=== PATIENT | male | born 1990 ===

== ENCOUNTER → 2020-11-15 10:54 | Outpatient (BNVA) | payer SELFPAY | PROVIDERS: Visit Provider Physician Assistant Medical | DX: Z02.79 Encounter for issue of other medical certificate (principal) ==

== ENCOUNTER 2021-03-06 08:06 | Emergency (ER) | payer MEDICAID, SELFPAY ==
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
[2021-03-06 08:09] VITALS: BP 152/104; PULSE 120; RESP 20; TEMP 36.9; O2SAT 96; BMI 30.1
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
--- NOTE | 2021-03-06 09:11 | ECG_ITS ---
Test Reason : SOB Blood Pressure : / mmHG Vent. Rate : 097 BPM Atrial Rate : 097 BPM P-R Int : 124 ms QRS Dur : 080 ms QT Int : 338 ms P-R-T Axes : 000 166 175 degrees QTc Int : 429 ms Possible limb lead reversal Normal sinus rhythm Right axis deviation T wave abnormality, consider inferior ischemia Abnormal ECG No previous ECGs available advise repeat study Referred By: Raffi Gar Electronically Signed By:JOSE ALBERTO SHARMA MD
--- NOTE | 2021-03-06 09:12 | PC.NURSE ---
@08:40 RABIA HART REQUEST RECORDS FROM [facility] [phone] CALL PLACED, THEY REQUEST FAX OF AUTH OF MED RELEASE TO [phone] WITH STAT ON FAX TANNER TELLS ME THIS IS NO LONGER NEEDED AND TO PLACE CALL TO [facility] FOR TRAUMA TRANSFER
--- NOTE | 2021-03-06 09:16 | PC.NURSE ---
@ 09:16 CALL PLACED TO [facility] PT TX LINE [phone] FOR TRAUMA TRANSFER @ RABIA HART REQUEST Shakira ANSWERS TAKES PT INFO THEN ASKS TO SPEAK WITH TANNER HART TAKES OVER CALL RIGHT AWAY
--- NOTE | 2021-03-06 09:30 | PC.NURSE ---
@09:28 RETURN CALL FROM JANAY FROM [facility] PT TX LINE ASKING TO SPEAK WITH TANNER HART TAKES OVER CALL RIGHT AWAY
--- NOTE | 2021-03-06 09:42 | PHA.MEDREC ---
Pharmacy Consult ? Medication Reconciliation Pharmacy has completed the medication reconciliation. Patient reports taking no prescription or OTC medications. Sharon Salinas, SrikanthD
[2021-03-06] MEDS: Morphine Sulfate 4 MG/ML CARTRIDGE IVPUSH (09:46)
[2021-03-06] MEDS: ondansetron HCL 4 MG/2 ML VIAL IVPUSH (09:46)
[2021-03-06] MEDS: Piperacillin Sodium/Tazobactam 3.375 GM in 0.9 % Sodium Chloride 50 ML IV (10:06)
[2021-03-06 10:13] LABS: MANUAL DIFF FLAG NO
[2021-03-06 10:16] LABS: Basophils Percent Auto 0.1 % (0-2); Eosinophils Percent Auto 0.1 % (0-4); Hematocrit 42.8 % (42.0-52.0); Hemoglobin 15.2 g/dl (14.0-18.0); Imm Gran Abs Auto 0.05 X10*3/uL (0.00-0.03); Imm Gran Pct Auto 0.4 % (0.0-0.4); Lymphocytes Percent Auto 8.9 % (20-40); Mean Corpuscular HGB Conc 35.5 g/dl (31.0-36.0); Mean Corpuscular Hemoglobin 31.7 pg (27.0-33.0); Mean Corpuscular Volume 89.2 fL (80.0-98.0); Monocytes Absolute Auto 0.9 X10*3/uL (0.1-1.2); Monocytes Percent Auto 7.5 % (2-11); Neutrophils Absolute Auto 9.7 x10*3/uL (2.0-8.3); Platelet Count 280 X10*3/uL (160-400); Red Cell Distribution Width 11.7 % (11.0-16.0); White Blood Count 11.7 X10*3/uL (4.8-10.8)
[2021-03-06] MEDS: Lactated Ringers 1,000 ML 999 ML IV (10:19)
[2021-03-06 10:21] LABS: INTERNATIONAL NORM RATIO 1.2 (0.9-1.1); Prothrombin Time 13.4 SEC (9.9-13.0)
[2021-03-06 10:27] LABS: Lactic Acid 0.8 mmol/L (0.5-2.0)
[2021-03-06 10:30] LABS: COVID-19 Test Negative (Negative); IDNOW Serial# 9DD0AD1C
[2021-03-06 10:34] LABS: Alanine Aminotransferase 28 U/L (0-40); Albumin Level 3.8 g/dL (3.5-5.0); Alkaline Phosphatase 51 U/L (39-117); Anion Gap 12 (12-20); Aspartate Amino Transferase 18 U/L (5-37); Bilirubin Total 0.8 mg/dL (0.0-1.0); Blood Urea Nitrogen 10 mg/dL (9-16); Calcium 8.7 mg/dL (8.4-10.2); Carbon Dioxide 26 mmol/L (22-29); Chloride 100 mmol/L (96-108); Creatinine Clr Calc Pharmacy 158.6; Estimated Glomerular Filt Rate > 60; Glucose Random 116 mg/dL (60-115); Lipase 13 U/L (8-78); Magnesium 1.9 mg/dL (1.6-2.6); Potassium 3.7 mmol/L (3.3-5.1); Sodium 134 mmol/L (135-145); Total Protein 6.6 g/dL (6.5-8.0)
[2021-03-06 10:46] VITALS: BP 147/85; PULSE 86; RESP 18; TEMP 38; O2SAT 96
[2021-03-06 11:50] LABS: Partial Thromboplastin Time 28.7 SEC (24.1-38.0)
== END 2021-03-06 11:35 | disposition short-term general hospital (02) ==
PROVIDERS: Physician Assistant; Emergency Provider Emergency Medicine Emergency Medical Services
DX: S80.812A Abrasion, left lower leg, initial encounter (principal); S80.811A Abrasion, right lower leg, initial encounter; S70.219A Abrasion, unspecified hip, initial encounter; S40.812A Abrasion of left upper arm, initial encounter; S40.811A Abrasion of right upper arm, initial encounter; S60.512A Abrasion of left hand, initial encounter; S60.511A Abrasion of right hand, initial encounter; L03.90 Cellulitis, unspecified; R53.1 Weakness; M54.2 Cervicalgia; V28.4XXA Motorcycle driver injured in noncollision transport accident in traffic accident, initial encounter; Y93.89 Activity, other specified; Y92.410 Unspecified street and highway as the place of occurrence of the external cause; Y99.9 Unspecified external cause status; Z20.822 Contact with and (suspected) exposure to COVID-19
CPT/HCPCS: 36415; 71111; 80053; 82550; 83605; 83690; 83735; 85025; 85610; 85730; 87040; 87635; 93005; 96365; 96375; 99284; 99291; J2270; J2405; J2543

== ENCOUNTER 2021-05-02 08:31 | Emergency (ER) | payer MEDICAID, SELFPAY ==
[2021-05-02 09:27] VITALS: BP 144/91; PULSE 100; RESP 16; TEMP 36.1; O2SAT 99; BMI 30.1
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
--- NOTE | 2021-05-02 11:27 | PC.NURSE ---
PT EVALUATED BY RABIA RODRIGUEZ PLAN IS FOR DC HOME. PT AGREEABLE TO PLAN. PT AWAKE, ALERT AND ORIENTED X 3. SKIN WARM AND DRY. RESP UNLABORED. DENIES N/V. AMBULATORY, GAIT STEADY
== END 2021-05-02 11:30 | disposition home or self-care (01) ==
PROVIDERS: Emergency Provider Emergency Medicine
DX: M54.16 Radiculopathy, lumbar region (principal); M54.50 Low back pain, unspecified
CPT/HCPCS: 99281; 99283

== ENCOUNTER 2021-08-18 05:47 | Emergency (ER) | payer MEDICAID, SELFPAY ==
[2021-08-18 06:29] VITALS: BP 140/89; PULSE 114; RESP 22; TEMP 38.2; O2SAT 97; BMI 34.8
[2021-08-18] MEDS: Ondansetron ODT 4 MG TAB.RAPDIS TRANSLINGU (06:35)
[2021-08-18 06:57] LABS: COVID-19 Test Negative (Negative); IDNOW Serial# 55D5AD1C
[2021-08-18 06:58] LABS: IDNOW Serial# 16C4AD1C; Influenza A Positive (Negative); Influenza B2 Negative (Negative)
--- NOTE | 2021-08-18 07:36 | ED_ITS ---
HPI - Nausea/Vomiting/Diarrhea General Chief complaint: Nausea/Vomiting/Diarrhea Stated complaint: fever; vomiting Time Seen by Provider: 08/18/21 07:36 Source: patient and family Mode of arrival: ambulatory Limitations: no limitations History of Present Illness MD elicited complaint: nausea, vomiting, diarrhea and other (fevers body aches) Pertinent past history: other (vaccinated for COVID) Onset (ago): day(s) (3) Description of vomiting: food contents and watery Associated nausea: Yes Associated abdominal pain: No Location of pain: diffuse Radiation: diffuse Pain consistency: constant Severity: moderate Quality: cramping and aching Exacerbating factors: movement Relieving factors: none Associated symptoms: myalgias, cough, fever/chills, headaches, loss of appetite, malaise and nausea/vomiting Treatment prior to arrival: other (no medications today ) Related Data Previous Rx's Medication Instructions Recorded acetaminophen 500 mg tablet 1,000 mg PO QID PRN #30 tab 05/02/21 cyclobenzaprine 5 mg tablet 5 mg PO TID PRN #14 tab 05/02/21 ibuprofen 600 mg tablet 600 mg PO Q6H PRN #30 tab 05/02/21 lidocaine 5 % topical patch 1 patch TOPICAL DAILY #15 ea 05/02/21 prednisone 20 mg tablet 60 mg PO DAILY 5 Days #15 tab 05/02/21 ondansetron 4 mg disintegrating 4 mg PO Q8H PRN #20 tab 08/18/21 tablet Allergies Allergy/AdvReac Type Severity Reaction Status Date / Time No Known Allergies Allergy Unverified 01/05/20 17:08 Review of Systems Review of Systems: Constitutional : No Weight loss, pos Fever, pos Chills ENT/Mouth : No sore throat, No Rhinorrhea Eyes: No Swelling, No Redness Cardiovascular : No Chest Pain, No SOB, NoEdema Respiratory : No Cough, No Sputum, No Wheezing Gastrointestinal : Positive Nausea, Positive Vomiting, positive Diarrhea, no abdominal Pain, No Hematochezia, No Melena Genitourinary : No Dysuria, No Urinary Frequency, No Hematuria, No Urgency Musculoskeletal : No joint pain, pos Myalgias, No Joint Swelling Skin : No Skin Lesions, No rash Neuro : pos Weakness, No Numbness, No Dizziness, pos Headache Psych : No Anxiety/Panic, No Depression Heme/Lymph: No Bruising, No Lymphadenopathy Endocrine : No Polyuria, No Polydipsia All other systems reviewed and are negative. Gastrointestinal: Gastrointestinal: Reports nausea PMFSH Past Medical History Attestation statement: The following information was validated with the patient. Medical History Asthma Social History Social History (Updated 08/18/21 @ 07:41 by Anjali Sr DO) Patient Tobacco Use Status: Never used Tobacco Advance Directives: No Advance Directives Information Provided: Yes Physical Exam Vital Signs: Vital Signs: Last Vital Signs Temp 100.8 F H 08/18/21 06:29 Pulse 114 H 08/18/21 06:29 Resp 22 H 08/18/21 06:29 BP 140/89 H 08/18/21 06:29 Pulse Ox 97 08/18/21 06:29 BMI result Body Mass Index 34.8 Appearance: Alert. Oriented X3. No acute distress. Eyes: Pupils equal, round and reactive to light. ENT: Pharynx normal. Neck: Normal inspection. Neck supple. CVS: tachycardic heart rate and rhythm. Pulses normal. Respiratory: No respiratory distress. Breath sounds normal. Abdomen: Soft and nontender. Skin: Skin warm and dry. Normal skin color. Normal skin turgor. Extremities: No lower extremity edema. No calf ttp Neuro: Oriented X 3. No motor deficit. No sensory deficit. Course Course Course Narrative: feels much better, able to tolerate PO stable for DC at this time MDM - Nausea/Vomiting/Diarrhea MDM Narrative Medical decision making narrative: 31 yo male with hx of asthma here with cough, fevers, body aches, headaches + for Flu A he is on day 3 of symptoms out of window for tamiflu - clear lungs. At this time will hydrate and provide supportive medications. Dispo per clinical improvement. Lab Data Result diagrams: 08/18/21 07:56 08/18/21 09:35 Labs: Lab Results 08/18/21 08/18/21 08/18/21 Range/Units 06:37 06:37 07:56 WBC 4.8 (4.8-10.8) X10*3/uL RBC 4.64 (4.60-5.80) X10*6/uL Hgb 14.2 (14.0-18.0) g/dl Hct 41.4 L (42.0-52.0) % MCV 89.2 (80.0-98.0) fL MCH 30.6 (27.0-33.0) pg MCHC 34.3 (31.0-36.0) g/dl RDW 12.4 (11.0-16.0) % Plt Count 197 D (160-400) X10*3/uL MPV 10.2 (9.4-12.4) fL Immature Gran % (Auto) 0.2 (0.0-0.4) % Neut % (Auto) 80.6 H (45-73) % Lymph % (Auto) 9.6 L (20-40) % [place] % (Auto) 9.0 (2-11) % Eos % (Auto) 0.6 (0-4) % Baso % (Auto) 0.0 (0-2) % Lymph # (Auto) 0.5 L (1.2-4.9) X10*3/uL [place] # (Auto) 0.4 (0.1-1.2) X10*3/uL Eos # (Auto) 0.0 (0.0-0.4) X10*3/uL Baso # (Auto) 0.0 (0.0-0.2) X10*3/uL Abs Immat Gran (auto) 0.01 (0.00-0.03) X10*3/uL Absolute Neuts (auto) 3.9 (2.0-8.3) x10*3/uL Absolute Nucleated RBC 0.000 (0.0-0.012) X10*3/uL Nucleated RBC % (auto) 0.0 (0.0-0.2) /100WBC Sodium (135-145) mmol/L Potassium (3.3-5.1) mmol/L Chloride (96-108) mmol/L Carbon Dioxide (22-29) mmol/L Anion Gap (12-20) BUN (9-16) mg/dL Creatinine (0.5-1.4) mg/dL Estim Creat Clear Calc Estimated GFR Random Glucose (60-115) mg/dL Calcium (8.4-10.2) mg/dL Total Bilirubin (0.0-1.0) mg/dL Direct Bilirubin (0.0-0.5) mg/dL AST (5-37) U/L ALT (0-40) U/L Alkaline Phosphatase (39-117) U/L Total Protein (6.5-8.0) g/dL Albumin (3.5-5.0) g/dL COVID-19 (MARIE) Negative (Negative) COVID-19 Clin Com See Note Influenza Type A (YARED) Positive A (Negative) Influenza Type B (YARED) Negative (Negative) Influenza A & B Note See Note 08/18/21 Range/Units 09:35 WBC (4.8-10.8) X10*3/uL RBC (4.60-5.80) X10*6/uL Hgb (14.0-18.0) g/dl Hct (42.0-52.0) % MCV (80.0-98.0) fL MCH (27.0-33.0) pg MCHC (31.0-36.0) g/dl RDW (11.0-16.0) % Plt Count (160-400) X10*3/uL MPV (9.4-12.4) fL Immature Gran % (Auto) (0.0-0.4) % Neut % (Auto) (45-73) % Lymph % (Auto) (20-40) % [place] % (Auto) (2-11) % Eos % (Auto) (0-4) % Baso % (Auto) (0-2) % Lymph # (Auto) (1.2-4.9) X10*3/uL [place] # (Auto) (0.1-1.2) X10*3/uL Eos # (Auto) (0.0-0.4) X10*3/uL Baso # (Auto) (0.0-0.2) X10*3/uL Abs Immat Gran (auto) (0.00-0.03) X10*3/uL Absolute Neuts (auto) (2.0-8.3) x10*3/uL Absolute Nucleated RBC (0.0-0.012) X10*3/uL Nucleated RBC % (auto) (0.0-0.2) /100WBC Sodium 137 (135-145) mmol/L Potassium 3.2 L (3.3-5.1) mmol/L Chloride 106 (96-108) mmol/L Carbon Dioxide 23 (22-29) mmol/L Anion Gap 11 L (12-20) BUN 11 (9-16) mg/dL Creatinine 0.97 (0.5-1.4) mg/dL Estim Creat Clear Calc 135.4 Estimated GFR > 60 Random Glucose 111 (60-115) mg/dL Calcium 8.1 L D (8.4-10.2) mg/dL Total Bilirubin 0.3 (0.0-1.0) mg/dL Direct Bilirubin 0.2 (0.0-0.5) mg/dL AST 25 (5-37) U/L ALT 38 (0-40) U/L Alkaline Phosphatase 38 L D (39-117) U/L Total Protein 6.1 L (6.5-8.0) g/dL Albumin 3.5 (3.5-5.0) g/dL COVID-19 (MARIE) (Negative) COVID-19 Clin Com Influenza Type A (YARED) (Negative) Influenza Type B (YARED) (Negative) Influenza A & B Note Discharge Plan Discharge Clinical Impression: Influenza A, Acute hypokalemia Patient Disposition: Home, Self-Care Instructions: Influenza (ED), Hypokalemia (ED) Additional Instructions: return to ED for any worsening symptoms or concerns take tylenol and motrin regularly for body aches and fevers gatorade, pedialyte take it easy and rest Prescriptions: New ondansetron 4 mg tablet,disintegrating 4 mg PO Q8H PRN (Reason: nausea and vomiting) Qty: 20 0RF No Action lidocaine 5 % adhesive patch,medicated 1 patch topical DAILY Qty: 15 0RF Rx Instructions: leave on most painful area for up to 12 hrs cyclobenzaprine 5 mg tablet 5 mg PO TID PRN (Reason: muscle spasm) Qty: 14 0RF ibuprofen 600 mg tablet 600 mg PO Q6H PRN (Reason: pain) Qty: 30 0RF prednisone 20 mg tablet 60 mg PO DAILY 5 Days Qty: 15 0RF acetaminophen 500 mg tablet 1,000 mg PO QID PRN (Reason: pain) Qty: 30 0RF
[2021-08-18 08:00] LABS: MANUAL DIFF FLAG NO
[2021-08-18] MEDS: 0.9 % Sodium Chloride 1,000 ML 999 ML IV (08:06)
[2021-08-18] MEDS: ondansetron HCL 4 MG/2 ML VIAL IVPUSH (08:06)
[2021-08-18] MEDS: Ketorolac Tromethamine 30 MG/ML VIAL IVPUSH (08:12)
[2021-08-18] MEDS: Acetaminophen 325 MG TABLET 650 MG PO (08:12)
[2021-08-18 08:14] LABS: Eosinophils Percent Auto 0.6 % (0-4); Hematocrit 41.4 % (42.0-52.0); Hemoglobin 14.2 g/dl (14.0-18.0); Imm Gran Abs Auto 0.01 X10*3/uL (0.00-0.03); Imm Gran Pct Auto 0.2 % (0.0-0.4); Lymphocytes Absolute Auto 0.5 X10*3/uL (1.2-4.9); Lymphocytes Percent Auto 9.6 % (20-40); Mean Corpuscular HGB Conc 34.3 g/dl (31.0-36.0); Mean Corpuscular Hemoglobin 30.6 pg (27.0-33.0); Mean Corpuscular Volume 89.2 fL (80.0-98.0); Mean Platelet Volume 10.2 fL (9.4-12.4); Monocytes Absolute Auto 0.4 X10*3/uL (0.1-1.2); Neutrophils Absolute Auto 3.9 x10*3/uL (2.0-8.3); Neutrophils Percent Auto 80.6 % (45-73); Platelet Count 197 X10*3/uL (160-400); Red Blood Count 4.64 X10*6/uL (4.60-5.80); Red Cell Distribution Width 12.4 % (11.0-16.0); White Blood Count 4.8 X10*3/uL (4.8-10.8)
[2021-08-18 09:59] LABS: Alanine Aminotransferase 38 U/L (0-40); Albumin Level 3.5 g/dL (3.5-5.0); Alkaline Phosphatase 38 U/L (39-117); Anion Gap 11 (12-20); Aspartate Amino Transferase 25 U/L (5-37); Bilirubin Direct 0.2 mg/dL (0.0-0.5); Bilirubin Total 0.3 mg/dL (0.0-1.0); Blood Urea Nitrogen 11 mg/dL (9-16); Calcium 8.1 mg/dL (8.4-10.2); Carbon Dioxide 23 mmol/L (22-29); Chloride 106 mmol/L (96-108); Creatinine Clr Calc Pharmacy 135.4; Estimated Glomerular Filt Rate > 60; Glucose Random 111 mg/dL (60-115); Potassium 3.2 mmol/L (3.3-5.1); Sodium 137 mmol/L (135-145); Total Protein 6.1 g/dL (6.5-8.0)
[2021-08-18] MEDS: Potassium Chloride Packet 20 MEQ PACKET 40 MEQ PO (11:30)
== END 2021-08-18 11:36 | disposition home or self-care (01) ==
PROVIDERS: Emergency Provider Emergency Medicine
DX: J10.1 Influenza due to other identified influenza virus with other respiratory manifestations (principal); E87.6 Hypokalemia; J45.909 Unspecified asthma, uncomplicated; Z20.822 Contact with and (suspected) exposure to COVID-19
CPT/HCPCS: 36415; 80048; 80076; 85025; 87502; 87635; 96361; 96374; 96375; 99283; 99284; J1885; J2405

== ENCOUNTER 2023-01-29 17:10 | Emergency (ER) | payer MEDICAID, SELFPAY ==
[2023-01-29 17:25] VITALS: BP 140/77; PULSE 90; RESP 17; TEMP 37; O2SAT 96; BMI 33.8
== END 2023-01-29 21:10 | disposition left against medical advice (07) ==
PROVIDERS: Emergency Provider Emergency Medicine
DX: S01.511A Laceration without foreign body of lip, initial encounter (principal); W22.8XXA Striking against or struck by other objects, initial encounter; Y93.9 Activity, unspecified; Y92.9 Unspecified place or not applicable; Y99.0 Civilian activity done for income or pay
CPT/HCPCS: 99281

== ENCOUNTER 2023-11-28 20:19 | Emergency (ER) | payer MEDICAID, SELFPAY ==
[2023-11-28] VITALS (8 sets, daily range): BP systolic 111–142; BP diastolic 80–92; PULSE 63–107; RESP 12–20; TEMP 36.6–36.7; O2SAT 96–99; BMI 30.2
--- NOTE | ~2023-11-28 | XR_ITS ---
EXAMINATION: XR HAND/WRIST, LEFT CLINICAL INFORMATION: Status post fall COMPARISON: None TECHNIQUE: PA, lateral, and oblique views of the left hand and wrist. FINDINGS: Possible minimally displaced fracture of the scaphoid base seen on oblique view. Remaining osseous structures appear intact. XR/XR hand wrist LT IMPRESSION: Possible minimally displaced fracture of the scaphoid base seen on oblique view. Repeat films with dedicated navicular view is recommended.
--- NOTE | ~2023-11-28 | CT_ITS ---
EXAMINATION: CT SHOULDER LET WITHOUT IV CONTRAST CLINICAL INFORMATION: Fall. Pain. Concern for dislocation. COMPARISON: None available. TECHNIQUE: Contiguous axial noncontrast CT scan images of the left shoulder obtained. Sagittal and coronal reformatted images also obtained. This CT examination was performed using dose optimization techniques as appropriate, variously including the following: *Automated exposure control *Adjustment of mA and/or kV according to patient size (this includes techniques or standardized protocols for targeted exams where dose is matched to indication/reason for exam; i.e. extremities or head) *Use of iterative reconstruction technique DLP: 665 mGy-cm FINDINGS: The bone mineralization is normal. The glenohumeral joint is maintained. No fracture is seen. The soft tissues are unremarkable. CT/CT shoulder LT wo IV con IMPRESSION: Unremarkable examination.
--- NOTE | ~2023-11-28 | XR_ITS ---
EXAMINATION: XR CHEST CLINICAL INFORMATION: Chest pain, fell off horse COMPARISON: 03/06/2021 TECHNIQUE: Frontal view of the chest was obtained. FINDINGS: No significant abnormality is noted involving the heart, lungs, mediastinum, bony thorax or soft tissues. XR/XR chest 1V IMPRESSION: Unremarkable examination.
--- NOTE | ~2023-11-28 | XR_ITS ---
EXAMINATION: XR SHOULDER, LEFT CLINICAL INFORMATION: Status post fall. COMPARISON: None available. TECHNIQUE: Two views of the left shoulder. FINDINGS: There is inferior displacement of the humeral head relative to the glenoid fossa. Soft tissue swelling about the shoulder. XR/XR shoulder LT min 2V IMPRESSION: Inferior displacement of the humeral head relative to the glenoid fossa.
--- NOTE | ~2023-11-28 | CT_ITS ---
EXAMINATION: CT HEAD WITHOUT CONTRAST CT CERVICAL SPINE WITHOUT CONTRAST CLINICAL INFORMATION: Trauma. Pain. COMPARISON: None available. TECHNIQUE: Contiguous axial imaging was performed through the head and cervical spine without intravenous administration of contrast. Sagittal and coronal reformatted images also obtained. This CT examination was performed using dose optimization techniques as appropriate, variously including the following: *Automated exposure control *Adjustment of mA and/or kV according to patient size (this includes techniques or standardized protocols for targeted exams where dose is matched to indication/reason for exam; i.e. extremities or head) *Use of iterative reconstruction technique DLP: 1397 mGy-cm FINDINGS: The lateral, third and fourth ventricles are normally outlined. The cortical sulci and basal cisterns are normally outlined as well. There is no acute territorial defect, hemorrhage or midline shift. The extra-axial spaces are unremarkable. Calvarium/scalp: Intact. Maxillofacial sinuses and mastoids: Clear as visualized. Cervical spine: The alignment is normal. The disc spaces are maintained. Spinal canal and neuroforamen are patent. The bone mineralization dilatation is normal. A heel/old C7 hillary shovelers type fracture of the spinous process is noted. No acute fracture seen. The soft tissues are unremarkable. The visualized upper lung reynoso are clear. CT/CT head/brain wo IV con IMPRESSION: 1. No acute intracranial pathology. 2. No evidence of acute cervical spine injury.
--- NOTE | ~2023-11-28 | XR_ITS ---
EXAMINATION: XR ELBOW, LEFT CLINICAL INFORMATION: Fell off horse COMPARISON: None available. TECHNIQUE: AP, lateral, and oblique views of the left elbow. FINDINGS: Minimally displaced fracture of the coronoid process seen on lateral view. Soft tissue swelling along the posterior aspect of the elbow. No large effusion. XR/XR elbow LT 2V IMPRESSION: Minimally displaced fracture of the coronoid process seen on lateral view. Soft tissue swelling along the posterior aspect of the elbow.
--- NOTE | ~2023-11-28 | XR_ITS ---
EXAMINATION: XR RIBS, LEFT CLINICAL INFORMATION: Left rib pain COMPARISON: None available. TECHNIQUE: 3 views of the left ribs were obtained. FINDINGS: Lungs are clear. No consolidation, pneumothorax, or pleural effusion. The cardiomediastinal silhouette and pulmonary vasculature are normal. Osseous structures are unremarkable. Ribs are intact. No fractures are identified. XR/XR ribs LT 2V IMPRESSION: Unremarkable examination.
--- NOTE | ~2023-11-28 | CT_ITS ---
EXAMINATION: CT HEAD WITHOUT CONTRAST CT CERVICAL SPINE WITHOUT CONTRAST CLINICAL INFORMATION: Trauma. Pain. COMPARISON: None available. TECHNIQUE: Contiguous axial imaging was performed through the head and cervical spine without intravenous administration of contrast. Sagittal and coronal reformatted images also obtained. This CT examination was performed using dose optimization techniques as appropriate, variously including the following: *Automated exposure control *Adjustment of mA and/or kV according to patient size (this includes techniques or standardized protocols for targeted exams where dose is matched to indication/reason for exam; i.e. extremities or head) *Use of iterative reconstruction technique DLP: 1397 mGy-cm FINDINGS: The lateral, third and fourth ventricles are normally outlined. The cortical sulci and basal cisterns are normally outlined as well. There is no acute territorial defect, hemorrhage or midline shift. The extra-axial spaces are unremarkable. Calvarium/scalp: Intact. Maxillofacial sinuses and mastoids: Clear as visualized. Cervical spine: The alignment is normal. The disc spaces are maintained. Spinal canal and neuroforamen are patent. The bone mineralization dilatation is normal. A heel/old C7 hillary shovelers type fracture of the spinous process is noted. No acute fracture seen. The soft tissues are unremarkable. The visualized upper lung reynoso are clear. CT/CT cervical spine wo IV con IMPRESSION: 1. No acute intracranial pathology. 2. No evidence of acute cervical spine injury.
--- NOTE | ~2023-11-28 | XR_ITS ---
EXAMINATION: XR wrist LT w scaphoid CLINICAL INFORMATION: Reason for Exam fall off horse COMPARISON: None. TECHNIQUE: Navicular view of the left wrist FINDINGS: * Obliquely oriented fracture of the scaphoid bone at the waist. XR/XR wrist LT w scaphoid IMPRESSION: Obliquely oriented fracture of the scaphoid bone at the waist.
--- NOTE | ~2023-11-28 | XR_ITS ---
EXAMINATION: XR SHOULDER, LEFT CLINICAL INFORMATION: Post reduction COMPARISON: 11/28/2023 TECHNIQUE: 2 views of the left shoulder. FINDINGS.: Persistent inferior displacement of the left humeral head relative to the glenoid fossa. Persistent widening of the acromioclavicular joint. XR/XR shoulder LT min 2V IMPRESSION: Persistent inferior displacement of the left humeral head relative to the glenoid fossa. Persistent widening of the acromioclavicular joint.
--- NOTE | 2023-11-28 20:28 | ED_ITS ---
HPI - Extremity Injury (Upper) General Chief Complaint: Trauma Stated Complaint: fell off a horse, left shoulder Time Seen by Provider: 11/28/23 20:50 Source: patient, RN notes reviewed and old records reviewed Mode of arrival: ambulatory History of Present Illness ED Provider: Lynsey Lucio PA-C HPI narrative: 33-year-old male no significant past medical history presenting to the ED complaining of left shoulder, elbow, wrist, and left rib pain s/p falling off horse 45 minutes [employer]. Denies head strike, admits was wearing helmet and chest protection. Denies taking anticoagulation. States stood up initially after incident, however too quickly and became lightheaded/dizzy and sat back down. Denies LOC. denies abdominal pain, nausea/vomiting, headache, neck/back pain Related Data Previous Rx's ?Medication ?Instructions ?Recorded acetaminophen 500 mg tablet 1,000 mg (2 x 500 mg) PO QID PRN 05/02/21 pain #30 tabs cyclobenzaprine 5 mg tablet 5 mg PO TID PRN muscle spasm #14 05/02/21 tabs ibuprofen 600 mg tablet 600 mg PO Q6H PRN pain #30 tabs 05/02/21 lidocaine 5 % topical patch 1 patch topical DAILY Back pain 05/02/21 #15 ea prednisone 20 mg tablet 60 mg (3 x 20 mg) PO DAILY 5 days 05/02/21 #15 tabs ondansetron 4 mg disintegrating 4 mg PO Q8H PRN nausea and 08/18/21 tablet vomiting #20 tabs acetaminophen 500 mg tablet 500 mg PO Q6H PRN fever or pain 11/29/23 (Tylenol Extra Strength) #14 tabs bacitracin 500 unit/gram topical 1 appl topical BID #30 grams 11/29/23 ointment ibuprofen 800 mg tablet 800 mg PO Q8H PRN pain #14 tabs 11/29/23 morphine 15 mg immediate release 15 mg PO Q6H PRN pain (scale score 11/29/23 tablet 7-10) 3 days #9 tabs Allergies Allergy/AdvReac Type Severity Reaction Status Date / Time No Known Allergies Allergy Verified 11/28/23 20:29 Review of Systems Review of Systems: Constitutional: No Fever, No Chills ENT/Mouth: No Ear Pain, No Nasal Congestion, No sore throat, No Rhinorrhea, No Swallowing Difficulty Cardiovascular: No Chest Pain, No SOB Respiratory: No Cough Gastrointestinal: No Nausea, No Vomiting, No Diarrhea, No Constipation, No Abdominal pain Genitourinary: No Dysuria, No Urinary Incontinence/retention Musculoskeletal: + joint pain, No Myalgias, + Joint Swelling Skin: + Skin Lesions, No rash Neuro: No Weakness, No Numbness, No Paresthesias, no head trauma, no LOC Yes all other systems are reviewed and are negative Constitutional: Constitutional: Reports as per HPI Neurologic: Denies Abnormal speech present [facility] Past Medical History Attestation statement: The following information was validated with the patient. Source: old records reviewed Medical History Asthma Social History Social History Alcohol intake: former Patient Tobacco Use Status: Never used Tobacco Smoked in Last 30 Days: No Use of substances other than those prescribed or required for medical reasons: Yes Substance Use Type: Marijuana Substance Use Frequency: Chronic Longstanding Advance Directives: No Advance Directives Information Provided: No Do you have a plan to hurt others: No Plan Physical Exam Vital Signs: Vital Signs: Last Vital Signs Temp 98.0 F 11/28/23 23:28 Pulse 71 11/29/23 00:06 Resp 15 11/29/23 00:06 BP 128/80 11/29/23 00:06 Pulse Ox 98 11/29/23 00:06 O2 Del Method Room Air 11/29/23 00:00 Oxygen Flow Rate 0 11/29/23 00:06 BMI result Body Mass Index 30.2 Const: General: cooperative, healthy appearing and no acute distress Orientation/consciousness: patient oriented x3 Limitations: no limitations HEENT: Head: Yes normal to inspection and Yes atraumatic Ears: hearing grossly normal bilaterally General nose exam: Normal external nose present Face and sinus: Yes normal facial exam Throat: Yes posterior oropharynx normal Eyes: General: appearance normal, both eyes and all related structures EOM: EOMs intact bilaterally Neck: Neck: Yes normal visual inspection and Yes no meningeal signs Resp: Effort & Inspection: normal respiratory effort and no respiratory distress Auscultation: clear to auscultation bilaterally Cardio: Rate: regular rate Heart sounds: S1 normal heart sound present and S2 normal heart sound present GI: Inspection: Yes normal to inspection Palpation (GI): Soft to palpation, nontender, no guarding and not rigid Back/Spine/Pelvis: Other: No midline cervical/thoracic/lumbar spinous tenderness/step-off or deformity Skin: Other: +abrasions noted to MAXE Neuro: General: patient oriented x3, tone normal, moves all extremities, no meningeal signs, no focal motor deficits and CN's II-XI intact bilaterally Cranial nerves: Yes CN's II-XII intact bilaterally Cognition (Neuro): normal cognition Speech: No Abnormal speech present Motor exam (neuro): 5/5 motor strength present throughout Extrem: Other: + appreciable deformity to left shoulder with decreased ROM. Neurovascular intact distally. Left elbow with mild swelling and tenderness. Left wrist with + scaphoid tenderness. Course Course Course Narrative: This is a rapid medical exam performed by Kali Pack NP: Additional HPI, ROS, PE not included below will be deferred to primary provider. Patient is a 33-year-old male presenting to the emergency department with complaint of left shoulder pain and deformity after falling off a horse prior to arrival. Patient states that he was riding a horse when he fell off onto his left side. He states that he was wearing a helmet. He states that he blacked out because he had the wind knocked out of him. He is not anticoagulated. Denies abdominal pain. Complains of chest pain in the area of his left shoulder. No abdominal tenderness noted in triage and lungs clear throughout. Plan: xrays, pain medication -chest and rib x-ray unremarkable -head and C-spine CT without acute injury/ICH XR elbow LT 2V IMPRESSION: Minimally displaced fracture of the coronoid process seen on lateral view. Soft tissue swelling along the posterior aspect of the elbow. XR hand wrist LT IMPRESSION: Possible minimally displaced fracture of the scaphoid base seen on oblique view. Repeat films with dedicated navicular view is recommended. XR wrist LT w scaphoid IMPRESSION: Obliquely oriented fracture of the scaphoid bone at the waist. XR shoulder LT min 2V IMPRESSION: Inferior displacement of the humeral head relative to the glenoid fossa. > attempted reduction after IV morphine given, unsuccessful. > case discussed with Orthopedics, due to patient's size and multiple fractures -reduction with procedural sedation performed with Dr. Rowley and IV propofol > clinically appear improved however x-ray appears unchanged. This was re- discussed with Orthopedics who recommended obtaining CT XR shoulder LT min 2V IMPRESSION: Persistent inferior displacement of the left humeral head relative to the glenoid fossa. Persistent widening of the acromioclavicular joint. > my interpretation of CT appears to be shoulder separation with reduction of shoulder dislocation. Will await official read -posterior long arm and thumb spica splint applied CT shoulder LT wo IV con IMPRESSION: Unremarkable examination. > 0256--called and spoke with radiologist, questioned shoulder separation. He will addendum report ADDENDUMAddendum: There is grade 3 acromioclavicular separation. Patient's care provider where a distended findings. > plan to DC with close orthopedic follow-up Medications Administered Discontinued Medications Generic Name Dose Route Start Last Admin Trade Name Freq PRN Reason Stop Dose Admin Diphtheria/Tetanus/Acell Pertussis 0.5 ml 11/28/23 23:03 11/28/23 23:07 Diphth,Pertus(Acell),Tet Adult 0.5 Ml Syringe IM 11/28/23 23:04 0.5 ml .ONCE ONE Administration Hydromorphone HCl 1 mg 11/28/23 23:03 11/28/23 23:07 Hydromorphone Hcl 1 Mg/Ml Syringe IVPUSH 11/28/23 23:04 1 mg ONCE ONE Administration Protocol Morphine Sulfate 4 mg 11/28/23 20:30 11/28/23 20:50 Morphine Sulfate 4 Mg/Ml Cartridge IVPUSH 11/28/23 20:31 4 mg ONCE ONE Administration Protocol Morphine Sulfate 4 mg 11/28/23 21:56 11/28/23 22:01 Morphine Sulfate 4 Mg/Ml Cartridge IVPUSH 11/28/23 21:57 4 mg ONCE ONE Administration Protocol Propofol 100 mg 11/28/23 22:53 11/28/23 23:55 Propofol 200 Mg/20 Ml Vial IVPUSH 11/28/23 22:54 100 mg ONCE ONE Administration Propofol 100 mg 11/28/23 22:55 11/29/23 01:47 Propofol 200 Mg/20 Ml Vial IVPUSH 11/28/23 22:56 Not Given ONCE ONE Medical Decision Making Medical Decision Making MDM Narrative: 33-year-old male no significant past medical history presenting to the ED complaining of left shoulder, elbow, wrist, and left rib pain s/p falling off horse 45 minutes [employer]. On exam initially tachycardic likely from pain, NAD/nontoxic appearing, no midline spinous tenderness throughout red flag symptoms. Physical exam as noted above. Concern for shoulder dislocation and fractures. Low suspicion for ICH. No evidence of infection/septic joint Plan: CT, x-rays Please refer to course for remaining clinical decision making, interpretation of labs/imaging results, and discussions with consultants and/or family members. Differential Diagnosis Differential Diagnoses: The differential diagnosis associated with the presentation includes As above Admission/Observation Consideration of admission/observation: Escalation of care including admission/observation considered Consult Healthcare Provider Management of the patient was discussed with: Internet Salesperson (Orthopedics) Lab Data MDM Lab Attestation statement: I reviewed the patient's lab results. Independent Interpretation I performed an independent interpretation of an: Plain X-Ray and CT Scan Radiology Impression Discussion of test interpretation with radiology: I have reviewed the radiologist's reading. External Record Review External record reviewed: Inpatient record, Office record, Outpatient record, Prior outpatient labs, Prior outpatient radiology, Primary care record and Outside ED record Tests considered The following testing was considered but not selected: As above Prescription Management I considered prescription management with: Pain Medication Procedures Orthopedic Joint Reduction Joint #1: Time Out Performed: Yes Side: left Joint Reduction Location: shoulder Analgesia: procedural sedation Shoulder Technique Used (if applicable): traction/counter-traction, scapula manipulation and external rotation Technique used: traction/counter-traction and direct manipulation Post-reduction neuro exam: intact Post-reduction vascular: intact Post Reduction X-Ray Obtained: Yes Post Reduction X-Ray Results: not reduced Patient Tolerated Procedure: well Orthopedic Splinting/Casting Injury #1: Side: left Upper Extremity Injury Location: elbow Upper Extremity Immobilizer: posterior splint Injury #2: Side: left Upper Extremity Injury Location: wrist Upper Extremity Immobilizer: thumb spica Injury #3: Side: left Upper Extremity Injury Location: shoulder Upper Extremity Immobilizer: sling/shoulder immobilizer Procedural Sedation Indication: fracture/dislocation reduction Time of Last PO Intake: 16:00 Preparation: waste minimization technician applied, pulse oximeter, capnometry used, supplemental O2 applied, suction/airway equipment at bedside and IV secured IV Propofol dose (mg): 100 Patient Tolerated Procedure: well Interventions: oxygen applied Critical Care Time Critical Care Time Critical Care Time: Yes Total Critical Care Time: 60 Attestation: I have personally provided critical care time exclusive of time spent on separately billable procedures. Time includes review of lab data, radiology results, discussion with consultants, and monitoring for potential decompensation. Intervention performed as documented. Discharge Plan Discharge Clinical Impression: Scaphoid fracture, Fracture of coronoid process of left ulna, Dislocated shoulder, Shoulder separation, Abrasion Patient Disposition: Still a Patient Instructions: Shoulder Dislocation (ED), Elbow Fracture (ED), Scaphoid Fracture (ED) Additional Instructions: You have a fracture of her scaphoid bone You also have a fracture of your coronoid process of your ulna Your shoulder was dislocated. Also appears to have a shoulder separation Please keep splints on, dry and clean If fingers become increasingly swollen, numb, or discolored or pain is unbearable remove splint and return to the ED immediately YOU NEED TO FOLLOW-UP WITH ORTHOPEDICS, CALL THURSDAY TO MAKE AN APPOINTMENT Morphine as an opiate pain medication, take only when pain is severe for the next 3 days In addition take ibuprofen and Tylenol Ice Elevate Use sling Prescriptions: New ibuprofen 800 mg tablet 800 mg PO Q8H PRN (Reason: pain) Qty: 14 0RF acetaminophen [Tylenol Extra Strength] 500 mg tablet 500 mg PO Q6H PRN (Reason: fever or pain) Qty: 14 0RF morphine 15 mg tablet 15 mg PO Q6H PRN (Reason: pain (scale score 7-10)) 3 Days Qty: 9 0RF Rx Instructions: Partial Fill upon patient request. bacitracin 500 unit/gram ointment 1 appl topical BID Qty: 30 0RF No Action ondansetron 4 mg tablet,disintegrating 4 mg PO Q8H PRN (Reason: nausea and vomiting) Qty: 20 0RF lidocaine 5 % adhesive patch,medicated 1 patch topical DAILY Qty: 15 0RF Rx Instructions: leave on most painful area for up to 12 hrs cyclobenzaprine 5 mg tablet 5 mg PO TID PRN (Reason: muscle spasm) Qty: 14 0RF ibuprofen 600 mg tablet 600 mg PO Q6H PRN (Reason: pain) Qty: 30 0RF prednisone 20 mg tablet 60 mg PO DAILY 5 Days Qty: 15 0RF acetaminophen 500 mg tablet 1,000 mg PO QID PRN (Reason: pain) Qty: 30 0RF Referrals: [facility] [Provider Group] - 2 days Print Language: French
[2023-11-28] MEDS: Morphine Sulfate 4 MG/ML CARTRIDGE IVPUSH ×2 (20:50→22:01)
--- NOTE | 2023-11-28 21:21 | MHC.EDTECH ---
pt left arm wounds cleaned from left shoulder to left elbow with sterile water and gauze. pt tolerated well.
[2023-11-28] MEDS: HYDROmorphone HCl 1 MG/ML SYRINGE IVPUSH (23:07)
[2023-11-28] MEDS: Diphth,Pertus(ACell),Tet Adult 0.5 ML SYRINGE IM (23:07)
[2023-11-28] MEDS: propofoL 200 MG/20 ML VIAL 100 MG IVPUSH (23:55)
[2023-11-29] VITALS: BP 125/80; PULSE 71; RESP 15; O2SAT 98
[2023-11-29 00:01] VITALS: BP 125/80; PULSE 85; RESP 16; O2SAT 95
[2023-11-29 00:06] VITALS: BP 128/80; PULSE 71; RESP 15; O2SAT 98
[2023-11-29 03:16] VITALS: BP 128/80; PULSE 71; RESP 15; TEMP 36.8; O2SAT 98
== END 2023-11-29 03:16 | disposition home or self-care (01) ==
PROVIDERS: Emergency Provider Emergency Medicine Emergency Medical Services
DX: S52.042A Displaced fracture of coronoid process of left ulna, initial encounter for closed fracture (principal); S62.002A Unspecified fracture of navicular [scaphoid] bone of left wrist, initial encounter for closed fracture; S43.122A Dislocation of left acromioclavicular joint, 100%-200% displacement, initial encounter; S42.122A Displaced fracture of acromial process, left shoulder, initial encounter for closed fracture; S42.292A Other displaced fracture of upper end of left humerus, initial encounter for closed fracture; V80.010A Animal-rider injured by fall from or being thrown from horse in noncollision accident, initial encounter; Y93.52 Activity, horseback riding; Y92.9 Unspecified place or not applicable; Y99.9 Unspecified external cause status; Z23 Encounter for immunization
CPT/HCPCS: 29105; 70450; 71045; 71100; 71101; 72125; 73030; 73070; 73110; 73130; 73200; 90471; 90715; 96374; 96375; 96376; 99152; 99284; 99285; 99291; J1170; J2270; J2704

== ENCOUNTER 2023-12-08 10:28 | Outpatient (AMB) | payer MEDICAID, SELFPAY ==
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
== END 2023-12-08 11:35 | disposition home or self-care (01) ==
PROVIDERS: Visit Provider Orthopaedic Surgery
DX: S62.002A Unspecified fracture of navicular [scaphoid] bone of left wrist, initial encounter for closed fracture (principal); S42.402A Unspecified fracture of lower end of left humerus, initial encounter for closed fracture; S43.085A Other dislocation of left shoulder joint, initial encounter
CPT/HCPCS: 99203

== ENCOUNTER 2023-12-08 10:36 | Outpatient (REF) | payer MEDICAID, SELFPAY ==
--- NOTE | ~2023-12-08 | XR_ITS ---
EXAMINATION: XR WRIST, LEFT CLINICAL INFORMATION: Follow-up scaphoid fracture. COMPARISON: CT wrist dated 12/15/2023; radiographs dated 11/28/2023. TECHNIQUE: PA, lateral, and oblique views of the left wrist. FINDINGS: Bony alignment and mineralization are normal. There is mild ulnar positive variance. A nondisplaced scaphoid waist fracture is redemonstrated. Small lunate and triquetral fracture fragments are noted, best appreciated on the lateral view. No dislocation is seen. There is no significant foreign body. There is no focal soft tissue swelling, gas or foreign body. XR/XR wrist LT w scaphoid IMPRESSION: Previously noted scaphoid waist, lunate and triquetral fractures are redemonstrated, in stable alignment. There is no significant callus formation. Electronically signed by: Sanju Rdz MD 12/31/2023 04:44 PM EDT
== END 2023-12-08 10:37 | disposition home or self-care (01) ==
LOC: HO.HOSX 10:36
DX: S62.002A Unspecified fracture of navicular [scaphoid] bone of left wrist, initial encounter for closed fracture (principal); S42.402A Unspecified fracture of lower end of left humerus, initial encounter for closed fracture; S43.085A Other dislocation of left shoulder joint, initial encounter
CPT/HCPCS: 73110; 99202

== ENCOUNTER 2023-12-11 13:53 | Outpatient (REF) | payer OTHER, SELFPAY | END 2023-12-11 13:54 | disposition home or self-care (01) | LOC: HO.HOSX 13:53 | DX: Z13.89 Encounter for screening for other disorder (principal) ==

== ENCOUNTER 2023-12-15 08:42 | Outpatient (REF) | payer OTHER, SELFPAY ==
--- NOTE | ~2023-12-15 | XR_ITS ---
EXAMINATION: XR SHOULDER, LEFT CLINICAL INFORMATION: Left shoulder pain COMPARISON: Left shoulder radiograph 11/28/[address] left shoulder 11/29/23 TECHNIQUE: AP external rotation, Grashey, scapular Y, and axillary views of the left shoulder. FINDINGS: There is marked Grade 3 AC joint separation with superior displacement of the distal left clavicle. The degree of displacement appears increased when compared to the prior study. The glenohumeral joint appears normal. XR/XR shoulder LT min 2V IMPRESSION: Grade 3 left AC joint separation. Electronically signed by: Chucky Stapleton MD 12/15/2023 11:00 AM EDT
--- NOTE | ~2023-12-15 | XR_ITS ---
EXAMINATION: XR ELBOW, LEFT CLINICAL INFORMATION: Pain in left elbow COMPARISON: Left elbow radiograph 11/28/2023 TECHNIQUE: AP, lateral, and oblique views of the left elbow. FINDINGS: Again noted minimally displaced fracture involving the coronoid process of the ulna. No additional fractures identified. Similar mild soft tissue swelling along the posterior aspect of the elbow. No large joint effusion. XR/XR elbow LT min 3V IMPRESSION: Again noted minimally displaced fracture of the coronoid process of the ulna. No new fractures. Electronically signed by: Alphonso Mccann MD 12/15/2023 10:54 AM EDT
--- NOTE | ~2023-12-15 | CT_ITS ---
EXAMINATION: CT of the left wrist INDICATION: S62.002A - Unspecified fracture of navicular [scaphoid] bone of left wri... COMPARISON: Radiograph dated 12/08/2023 and 11/28/2023 TECHNIQUE: Multidetector volumetric imaging was obtained through the left wrist without contrast. Multiplanar reformatted images in coronal and sagittal orientations were submitted. This CT examination was performed using dose optimization techniques as appropriate, variously including the following: *Automated exposure control *Adjustment of mA and/or kV according to patient size (this includes techniques or standardized protocols for targeted exams where dose is matched to indication/reason for exam; i.e. extremities or head) *Use of iterative reconstruction technique DLP: 119 mGy-cm FINDINGS: There is an acute oblique transverse fracture through the scaphoid waist with comminution at the margins and minimal apex dorsal angulation. Dorsally, there is an avulsion fracture at the lunate corresponding to the attachment of the dorsal band of the scapholunate ligament. A small avulsion fracture is also present at the volar aspect of the scapholunate articulation. There is a separate oblique coronal/transverse fracture through the triquetrum at the hallmark/volar margin with subtle comminution at the margins and minimal displacement (2 mm). This fracture extends into the lunotriquetral articulation and the radioulnar joint as well as the DIPs of triquetral articulation. Please perform is intact. Transverse fracture is present at the base of the hamate without significant displacement. Tendons are intact. No appreciable tears. Musculature is normal in attenuation. CT/CT wrist LT wo IV con IMPRESSION: 1. Acute oblique transverse fracture through the scaphoid waist with minimal apex dorsal angulation. 2. Dorsal avulsion fracture at the lunate at the attachment of the dorsal band of the scapholunate ligament. 3. Minimally displaced oblique coronal/transverse fracture through the triquetrum. 4. Nondisplaced transverse fracture at the base of the hamate. Electronically signed by: Malcolm De La Rosa MD 12/15/2023 10:03 AM EDT
== END 2023-12-15 08:43 | disposition home or self-care (01) ==
LOC: HO.CT 08:42
PROVIDERS: Visit Provider Orthopaedic Surgery
DX: M25.522 Pain in left elbow (principal); M25.512 Pain in left shoulder; S62.002A Unspecified fracture of navicular [scaphoid] bone of left wrist, initial encounter for closed fracture
CPT/HCPCS: 73030; 73080; 73200; 99212

== ENCOUNTER 2023-12-15 10:35 | Outpatient (AMB) | payer MEDICAID, SELFPAY ==
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
== END 2023-12-15 11:22 | disposition home or self-care (01) ==
DX: S43.122A Dislocation of left acromioclavicular joint, 100%-200% displacement, initial encounter (principal); S52.04 Fracture of coronoid process of ulna
CPT/HCPCS: 99214

== ENCOUNTER 2023-12-16 13:30 | Outpatient (AMB) | payer OTHER, SELFPAY ==
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
[2023-12-16 13:36] VITALS: BMI 30.1
== END 2023-12-16 14:40 | disposition home or self-care (01) ==
PROVIDERS: Visit Provider Orthopaedic Surgery
DX: S62.002A Unspecified fracture of navicular [scaphoid] bone of left wrist, initial encounter for closed fracture (principal); S62.122A Displaced fracture of lunate [semilunar], left wrist, initial encounter for closed fracture; S62.142A Displaced fracture of body of hamate [unciform] bone, left wrist, initial encounter for closed fracture; S62.112A Displaced fracture of triquetrum [cuneiform] bone, left wrist, initial encounter for closed fracture; S63.8X2A Sprain of other part of left wrist and hand, initial encounter; J45.909 Unspecified asthma, uncomplicated
CPT/HCPCS: 25630; 99214

== ENCOUNTER → 2023-12-16 13:30 | Outpatient (BNVA) | payer OTHER, SELFPAY | PROVIDERS: Visit Provider Orthopaedic Surgery | DX: S62.002A Unspecified fracture of navicular [scaphoid] bone of left wrist, initial encounter for closed fracture (principal); S62.122A Displaced fracture of lunate [semilunar], left wrist, initial encounter for closed fracture; S62.142A Displaced fracture of body of hamate [unciform] bone, left wrist, initial encounter for closed fracture; S62.112A Displaced fracture of triquetrum [cuneiform] bone, left wrist, initial encounter for closed fracture; S63.8X2A Sprain of other part of left wrist and hand, initial encounter; V80.010A Animal-rider injured by fall from or being thrown from horse in noncollision accident, initial encounter; Y93.9 Activity, unspecified; Y99.9 Unspecified external cause status; Y92.9 Unspecified place or not applicable | CPT/HCPCS: 25630; 99212 ==

== ENCOUNTER 2023-12-28 05:31 | Day surgery (SDC) | payer OTHER, SELFPAY ==
--- NOTE | 2023-12-24 13:27 | P.CONAN_ITS ---
Documented by User: Leah Newberry NP 12/24/23 13:27 HPI - Anesthesia Eval Consult details Narrative: 33yo M for Left Scaphoid ORIF PMFSH Active Problems Active Problems: All Active Problems Left scapholunate ligament tear (Acute) Asthma (Acute) Fracture of triquetral bone of left wrist (Acute) Fracture of body of hamate of left wrist (Acute) Fracture of lunate of left wrist (Acute) Acromioclavicular joint separation, type 3 (Acute) Grade 3 separation of left shoulder (Acute) Left elbow fracture (Acute) Fracture of scaphoid of left wrist (Acute) Past Medical History Medical History Asthma Social History Social History Alcohol intake: former Patient Tobacco Use Status: Never used Tobacco Second Hand Smoke Exposure: No Use of substances other than those prescribed or required for medical reasons: Yes Substance Use Type: Marijuana Substance Use Frequency: Daily Have you been hit, kicked, punched, or otherwise hurt by someone within the past year? 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 Allergies Allergy/AdvReac Type Severity Reaction Status Date / Time No Known Allergies Allergy Verified 12/15/23 11:54 Assessment and Plan Assessment Anesthesia Assessment: Chart Reviewed Documented by User: Rosa Kim MD 12/28/23 08:40 PMFSH Past Medical History Medical History Asthma Family History Family history of problems with anesthesia: No Surgical History History of Problems with Anesthesia: No Social History Social History Alcohol intake: former Patient Tobacco Use Status: Never used Tobacco Second Hand Smoke Exposure: No Use of substances other than those prescribed or required for medical reasons: Yes Substance Use Type: Marijuana Substance Use Frequency: Daily Have you been hit, kicked, punched, or otherwise hurt by someone within the past year? 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 Allergies Allergy/AdvReac Type Severity Reaction Status Date / Time No Known Allergies Allergy Verified 12/15/23 11:54 Exam Airway Mallampati Class: II TM Dist: >3cm Heart: rr Lungs: cta Assessment and Plan Assessment Anesthesia Assessment: Anesthesia Plan Discussed Final Anesthetic Review Family History of Problems with Anesthesia: No History of Problems with Anesthesia: No NPO: Yes ASA Class: II (daily marihuana smoker) Final Preanesthetic Review: No Changes in Pt Med Stat, Meds/Allgs Chart Reviewed, Consent Obtained/Reviewed and Anes Risks/Benef Reviewed Patient Risk: Low Procedure Risk: Low Anesthetic Plan Anesthetic Plan: GA and Regional Block Disposition: Standard PACU
[2023-12-28] VITALS (8 sets, daily range): BP systolic 124–150; BP diastolic 71–91; PULSE 75–115; RESP 14–18; TEMP 36.4–36.6; O2SAT 95–99; BMI 30.1
[2023-12-28] MEDS: Lactated Ringers 1,000 ML 100 ML IVCONT (06:31)
--- NOTE | 2023-12-28 08:05 | P.OP_ITS ---
Operative Note Operative Note Date of Service: 12/28/23 Narrative: Operative Note Narrative:? Preop diagnosis:? 1. Left scaphoid waist fracture?, with comminution and is a smoker 2. Left possible scapholunate intercarpal ligament tear Postop diagnosis:? 1. Left scaphoid waist fracture with comminution Procedure:? 1. Left scaphoid fracture open reduction internal fixation? Surgeon:? Juliana Santiago MD Director Global Development:? None Anesthesia:? General Anesthesia? plus regional block Findings:? Scapholunate intercarpal ligament appeared to be intact, and with no widening of the scapholunate interval. Scaphoid waist fracture. Implants:? 22 mm AcuTrak 2 mini headless compression screw Tourniquet time:? 72 minutes EBL:? 5.0 ml Specimen:? None Drains:? None Complications:? None Disposition:? Brought to the recovery room in stable condition Plan:?? Follow-up in 10-14 days for wound check, suture removal, pre clinic radiographs and for placement in a short-arm thumb spica cast Indications:? The patient is a 33 year old man with? a left comminuted scaphoid waist fracture, and the patient is a smoker.? The risks and benefits of operative treatment, including but not limited to risk of damage to blood vessels, nerves, tendons, infection, recurrence, nonunion, persistent pain or numbness, incomplete resolution of preoperative symptoms, or need for further surgery were discussed with the patient and they wished to proceed with surgery. Procedure:? Once consent was obtained patient was brought back to the operating suite and placed in the operating table in a supine position.? A regional block was performed by the anesthesia team.? Perioperative antibiotics and anesthesia was administered by the anesthesia team.? A tourniquet was applied to the proximal aspect of the left upper extremity and the limb was prepped and draped in a standard surgical fashion.? The limb was elevated exsanguinated with Esmarch bandage and the tourniquet inflated to 250 mm of mercury for a total tourniquet time of 72 minutes.?? A 2 cm longitudinal incision was made extending from Natasha's tubercle distally.? The incision was made through the skin to the subcutaneous tissues using a 15. Blade.? I then dissected down to the level of the extensor tendons and we passed between the 3rd and 4th dorsal compartments with care being taken to protect the EPL tendon and the tendons of the 4th dorsal compartment.? I did longitudinally incised the distal cm of the extensor retinaculum under direct visualization. We passed between the 3rd and 4th dorsal compartments extending down to the level of the dorsal joint capsule.? The mini C-arm was used during the case to assist with implant placement and assessment of our fracture.? We used the mini C-arm to assure that we were directly over the scapholunate lunate interval, and the joint capsule was opened using a 15. Blade and tenotomy scissors under direct visualization.? At this point the wrist joint was visualized.? The proximal pole of the scaphoid was visualized as was the depression indicating the scapholunate ligament and interval.? The wrist was then brought into 45 degrees of flexion and ulnar deviation.? I then passed a guidewire from the AcuTrak 2 mini headless compression screw set into the proximal aspect of the scaphoid.? This was then advanced distally across the fracture site and into the distal pole of the scaphoid using the mini C-arm to evaluate its placement.? Once satisfied with the placement of the guidewire a 2nd guidewire was positioned as an anti rotation pin.? I then measured for the length of the screw, then subtracting 2 mm from each the proximal and distal p oles to select a 22 mm? mm headless compression screw.? The long slender cannulated Reamer was then used to ream over the guidewire and across the fracture site, and the mini C-arm was used to evaluate the depth of the Reamer.? A short fat cannulated Reamer was then used to open up the near cortex.? I then placed the 22 mm AcuTrak 2 mini headless compression screw, with good compression across the fracture site.? Care was taken to assure that the proximal end of the screw was placed beneath the articular cartilage and into the subchondral bone on multiple fluoroscopic images.? Once satisfied with our fracture reduction and implant placement final images were taken on the mini C- arm. The proximal capsular ligamentous layer was reapproximated with some 3-0 Ethibond. Similarly I reapproximated the distal aspect of the extensor retinaculum with some 3-0 Ethibond. ?At this point the tourniquet was deflated and hemostasis obtained with a brief period of local pressure and bipolar electrocautery.? The wound was copiously irrigated with normal saline.? The subcutaneous layer was closed with 4-0 Vicryl suture, and the skin edges were reapproximated with 5-0 nylon suture.? The wound was infiltrated with some 1% lidocaine with epinephrine for postop pain control and a sterile dressing and a short-arm thumb spica splint was applied.? The patient appears to have tolerated the procedure well and with no complications.? All digits were well vascularized conclusion of the case.
--- NOTE | 2023-12-28 08:05 | MHC.SHP ---
Pre-Procedural Eval Section A - 24 Hr Update-Section A only Date of Service: 12/28/23 The patient is an INPATIENT: No Changes since office visit: No Cold of Flu in the past 2 weeks, No New Medical Problems, No Changes in Medication and No Patient answered all questions The patient has been examined within 24 hours of the surgical procedure. The History & Physical has been completed within 30 days and I have reviewed it.: Yes Section B - Complete if H&P > 30 days Chief Complaint: Unspecified fracture of navicular [scaphoid] bone Allergies: Allergies Allergy/AdvReac Type Severity Reaction Status Date / Time No Known Allergies Allergy Verified 12/15/23 11:54 Plan I have reviewed the history and physical and performed a pertinent physical examination on my patient. No changes have occurred unless specified. Time Spent With Patient Time: Total time managing care of this patient today ____ minutes.
== END 2023-12-28 11:20 | disposition home or self-care (01) ==
PROVIDERS: Visit Provider Orthopaedic Surgery
PROC: (CPT 25628; principal; 2023-12-28 07:30)
DX: S62.002A Unspecified fracture of navicular [scaphoid] bone of left wrist, initial encounter for closed fracture (principal); V80.010A Animal-rider injured by fall from or being thrown from horse in noncollision accident, initial encounter; Y93.52 Activity, horseback riding; Y92.9 Unspecified place or not applicable; Y99.8 Other external cause status; J45.909 Unspecified asthma, uncomplicated; F12.90 Cannabis use, unspecified, uncomplicated; Z87.81 Personal history of (healed) traumatic fracture; Z87.828 Personal history of other (healed) physical injury and trauma
CPT/HCPCS: 25628; A4649; C1713; J0665; J0690; J1100; J2250; J2405; J2704; J3010

== ENCOUNTER → 2023-12-28 05:31 | Outpatient (BNV) | payer OTHER, SELFPAY | PROVIDERS: Visit Provider Orthopaedic Surgery | DX: S62.002A Unspecified fracture of navicular [scaphoid] bone of left wrist, initial encounter for closed fracture (principal) | CPT/HCPCS: 25628 ==

== ENCOUNTER 2024-01-05 07:54 | Outpatient (REF) | payer OTHER, SELFPAY ==
--- NOTE | ~2024-01-05 | XR_ITS ---
EXAMINATION: XR WRIST, LEFT CLINICAL INFORMATION: Left wrist pain, scaphoid fracture COMPARISON: None available. TECHNIQUE: PA, lateral, oblique, and scaphoid views of the left wrist. FINDINGS: Jack screw traverses the scaphoid waist fracture. Alignment appears similar. Subtle fractures of the lunate and triquetrum again noted. Dorsal soft tissue swelling. XR/XR wrist LT w scaphoid IMPRESSION: Jack screw traverses the scaphoid waist fracture. Subtle fractures of the lunate and triquetrum again noted. Electronically signed by: Chema Fan MD 01/11/2024 08:44 AM EDT
== END 2024-01-05 07:55 | disposition home or self-care (01) ==
LOC: HO.HOSX 07:54
DX: M25.532 Pain in left wrist (principal); S62.002D Unspecified fracture of navicular [scaphoid] bone of left wrist, subsequent encounter for fracture with routine healing; X58.XXXD Exposure to other specified factors, subsequent encounter; Z98.890 Other specified postprocedural states
CPT/HCPCS: 73110; 99212

== ENCOUNTER 2024-01-05 13:18 | Outpatient (AMB) | payer OTHER, SELFPAY ==
--- NOTE | 2024-01-05 13:23 | MHC.OFFVIS ---
Vital Signs 01/05/24 13:24 Height 5 ft 11 in Weight 216 lb BMI 30.1 Intake Visit Reasons: PO LT scaphoid ORIF 12/28/23 AR Intake Note: Henry is a 33 year old left hand dominant male who presents today post operatively S/P Left scaphoid fracture open reduction internal fixation DOS: 12/28/2023 w/ Dr Santiago. Patient reports ongoing on and off numbness on his left upper arm that was not present prior to surgery. He also reports pain on the dorsal aspect of the left wrist. Denies tingling or numbness at the left wrist. Allergies No Known Allergies Allergy (Verified 01/05/24 13:32) HPI HPI PO LT scaphoid ORIF 12/28/23 AR: Details: Patient is a 33-year-old male who presents for postoperative evaluation status post left scaphoid ORIF, DOS 12/28/2023. Today, the patient reports that he is feeling well, and then he is not experiencing any pain in his left hand or wrist at this time. The patient's girlfriend does report that he was riding a horse this past weekend, despite recommendations from Dr. Santiago to avoid any high energy or high-risk activities. Patient denies any numbness or tingling in the right hand, but states that he has been experiencing numbness and a ?burning sensation? on the underside of the left proximal arm in the area of the block administered in both the emergency department and prior to surgery. 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 Neuro: Normal sensation of the tips of all digits of the left hand at this time Vascular: Cap refill brisk Pain: Patient reports no tenderness to palpation about the incision site, in the anatomical snuffbox, or elsewhere in the left hand and wrist ROM: Patient is able to make a closed fist and extend the digits of the left hand fully without difficulty Skin: Well-approximated incision site noted on the dorsal aspect of the left wrist, sutures in place No drainage noted General: No ecchymosis, erythema, or evidence of infection. Psych: Appears grossly normal Affect normal Attitude cooperative Office Procedures Casting/Splints Details: Thumb spica splint [id number] Splint Application Procedure code (CPT) selection complete Results Reviewed Results Reviewed: X-rays obtained in the office today and independently reviewed by me, [place] PA-C, demonstrate well approximated fracture of the left scaphoid with orthopedic hardware in place and in satisfactory clinical alignment. Assessment & Plan Assessment & Plan (1) Fracture of scaphoid of left wrist: Code(s): S62.002A - Unspecified fracture of navicular [scaphoid] bone of left wrist, initial encounter for closed fracture Category: Medical Plan 1. Left scaphoid fracture status post ORIF DOS 12/28/2023 Patient appears to be recovering well postoperatively Patient is educated about the typical recovery course At this time, due to the patient's swelling and only being 8 days removed from surgery, sutures will remain in and the patient will be placed back into a thumb spica splint Patient will follow-up in 1 week for reassessment of swelling, suture removal, and placement into a thumb spica cast Patient is educated about proper splint care and precautions Patient is once again educated that he should avoid any high-risk or high energy activities, namely riding a motorcycle or a horse, to avoid re-injury and or further worsening of his current injuries Patient expresses understanding of this Patient will follow-up in 1 week for reassessment, sooner with any acute concerns Orders: Orders XR wrist LT w scaphoid Today M25.532 - Pain in left wrist Coding Level of Care Code Global (26903) Diagnoses Fracture of scaphoid of left wrist S62.002A CPT Codes Splint - CPT: 11093-Gnevubd Splint Application ([id number])
[2024-01-05 13:24] VITALS: BMI 30.1
== END 2024-01-05 14:32 | disposition home or self-care (01) ==
DX: S62.002A Unspecified fracture of navicular [scaphoid] bone of left wrist, initial encounter for closed fracture (principal); V80.010A Animal-rider injured by fall from or being thrown from horse in noncollision accident, initial encounter
CPT/HCPCS: 29125; 99024

== ENCOUNTER 2024-01-12 10:56 | Outpatient (REF) | payer OTHER, SELFPAY ==
--- NOTE | ~2024-01-12 | XR_ITS ---
EXAMINATION: XR WRIST, LEFT CLINICAL INFORMATION: M25.532 - Pain in left wrist COMPARISON: 01/05/2024, 12/08/2023, 11/28/2023. CT left wrist 12/15/2023. TECHNIQUE: PA, lateral, and oblique views of the left wrist. FINDINGS: Compression screw seen traversing the proximal to distal scaphoid, fixating a mid waist scaphoid fracture. There is gross anatomical alignment of the fracture fragments. Fracture margins appear similar to the prior study. No periscrew lucency or complication. Subtle fractures of the dorsal lunate and triquetrum again noted. Remainder of the bones and soft tissues of the left wrist appear normal. XR/XR wrist LT w scaphoid IMPRESSION: 1. Compression screw traversing a mid waist scaphoid fracture without complication. Fracture remains in anatomic alignment. 2. Stable appearance subtle fracture dorsal lunate and triquetrum. 3. No additional abnormalities left wrist. Electronically signed by: Malcolm Preston MD 03/21/2024 10:34 AM CHE[facility] VERNON
== END 2024-01-12 10:57 | disposition home or self-care (01) ==
LOC: HO.HOSX 10:56
PROVIDERS: Visit Provider Orthopaedic Surgery
DX: M25.532 Pain in left wrist (principal); S62.002A Unspecified fracture of navicular [scaphoid] bone of left wrist, initial encounter for closed fracture; S62.122A Displaced fracture of lunate [semilunar], left wrist, initial encounter for closed fracture; S62.142A Displaced fracture of body of hamate [unciform] bone, left wrist, initial encounter for closed fracture; S62.112A Displaced fracture of triquetrum [cuneiform] bone, left wrist, initial encounter for closed fracture; J45.909 Unspecified asthma, uncomplicated; S63.8X2A Sprain of other part of left wrist and hand, initial encounter
CPT/HCPCS: 73110; 99212

== ENCOUNTER → 2024-01-12 11:00 | Outpatient (BNV) | payer OTHER, SELFPAY | PROVIDERS: Visit Provider Radiology Diagnostic Radiology | DX: M25.532 Pain in left wrist (principal) | CPT/HCPCS: 73110 ==

== ENCOUNTER 2024-01-12 14:55 | Outpatient (AMB) | payer OTHER, SELFPAY ==
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
== END 2024-01-12 16:23 | disposition home or self-care (01) ==
PROVIDERS: Visit Provider Orthopaedic Surgery
DX: S62.002A Unspecified fracture of navicular [scaphoid] bone of left wrist, initial encounter for closed fracture (principal); S62.122A Displaced fracture of lunate [semilunar], left wrist, initial encounter for closed fracture; S62.142A Displaced fracture of body of hamate [unciform] bone, left wrist, initial encounter for closed fracture; S62.112A Displaced fracture of triquetrum [cuneiform] bone, left wrist, initial encounter for closed fracture; J45.909 Unspecified asthma, uncomplicated; S63.8X2A Sprain of other part of left wrist and hand, initial encounter
CPT/HCPCS: 99024

== ENCOUNTER 2024-02-09 10:32 | Outpatient (REF) | payer OTHER, SELFPAY ==
--- NOTE | ~2024-02-09 | XR_ITS ---
EXAMINATION: XR WRIST, LEFT CLINICAL INFORMATION: M25.532 - Pain in left wrist COMPARISON: 01/12/2024, dating back to 11/28/2023. TECHNIQUE: PA, lateral, and oblique views of the left wrist. FINDINGS: Compression screw seen traversing the proximal to distal scaphoid, fixating a mid waist scaphoid fracture. There is gross anatomical alignment of the fracture fragments. Fracture margins appear similar to the prior study. No periscrew lucency or complication. Subtle fractures of the dorsal lunate, volar hamate, and volar triquetrum. And triquetrum again noted. Remainder of the bones and soft tissues of the left wrist appear normal. XR/XR wrist LT w scaphoid IMPRESSION: 1. Compression screw traversing a mid waist scaphoid fracture without complication. Fracture remains in anatomic alignment. Grossly stable appearance of fracture margins. 2. Stable appearance of subtle fractures dorsal lunate, volar hamate, and volar triquetrum. 3. No additional abnormalities left wrist. Electronically signed by: Malcolm Preston MD 03/21/2024 10:39 AM [facility]ERNON
== END 2024-02-09 10:33 | disposition home or self-care (01) ==
LOC: HO.HOSX 10:32
PROVIDERS: Visit Provider Orthopaedic Surgery
DX: M25.532 Pain in left wrist (principal); S62.002D Unspecified fracture of navicular [scaphoid] bone of left wrist, subsequent encounter for fracture with routine healing; S62.142D Displaced fracture of body of hamate [unciform] bone, left wrist, subsequent encounter for fracture with routine healing; S62.122D Displaced fracture of lunate [semilunar], left wrist, subsequent encounter for fracture with routine healing; S62.112D Displaced fracture of triquetrum [cuneiform] bone, left wrist, subsequent encounter for fracture with routine healing; Z98.890 Other specified postprocedural states
CPT/HCPCS: 73110; 99212

== ENCOUNTER 2024-02-09 15:28 | Outpatient (AMB) | payer OTHER, SELFPAY ==
[2024-02-09 15:57] VITALS: BMI 30.1
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
== END 2024-02-09 16:56 | disposition home or self-care (01) ==
PROVIDERS: Visit Provider Orthopaedic Surgery
DX: S62.002A Unspecified fracture of navicular [scaphoid] bone of left wrist, initial encounter for closed fracture (principal); S62.122A Displaced fracture of lunate [semilunar], left wrist, initial encounter for closed fracture; S62.142A Displaced fracture of body of hamate [unciform] bone, left wrist, initial encounter for closed fracture; S62.112A Displaced fracture of triquetrum [cuneiform] bone, left wrist, initial encounter for closed fracture; J45.909 Unspecified asthma, uncomplicated; S63.8X2A Sprain of other part of left wrist and hand, initial encounter
CPT/HCPCS: 99024

== ENCOUNTER → 2024-02-09 15:36 | Outpatient (BNV) | payer OTHER, SELFPAY | PROVIDERS: Visit Provider Radiology Diagnostic Radiology | DX: S62.002D Unspecified fracture of navicular [scaphoid] bone of left wrist, subsequent encounter for fracture with routine healing (principal); S62.122D Displaced fracture of lunate [semilunar], left wrist, subsequent encounter for fracture with routine healing | CPT/HCPCS: 73110 ==

== ENCOUNTER 2024-03-09 08:38 | Outpatient (REF) | payer OTHER, SELFPAY | END 2024-03-09 08:39 | disposition home or self-care (01) | LOC: HO.HOSX 08:38 | PROVIDERS: Visit Provider Orthopaedic Surgery | DX: Z13.89 Encounter for screening for other disorder (principal) ==

== ENCOUNTER 2024-04-18 16:07 | Emergency (ER) | payer OTHER, SELFPAY ==
[2024-04-18 16:32] VITALS: BP 149/99; PULSE 106; RESP 20; TEMP 37.2; O2SAT 98; BMI 30.1
--- NOTE | 2024-04-18 16:32 | ED.GENADULT ---
HPI - General Adult General Chief complaint: Nausea/Vomiting/Diarrhea Stated complaint: vomiting,dizziness,headache Time Seen by Provider: 04/18/24 18:52 Source: patient, RN notes reviewed and old records reviewed Mode of arrival: ambulatory Limitations: no limitations History of Present Illness ED Provider: Addison EISENBERG narrative: 34-year-old male presents for evaluation of flu-like symptoms. He complains of nausea vomiting, body aches, fevers, back pain. His symptoms started 3 days ago. He took some antipyretics prior to arrival. He reports that he feels sweaty, he has had the chills as well. He reports ?I feel like I was hit by a truck. ? Related Data Previous Rx's ?Medication ?Instructions ?Recorded cyclobenzaprine 5 mg tablet 5 mg PO TID PRN muscle spasm #14 05/02/21 tabs lidocaine 5 % topical patch 1 patch topical DAILY Back pain 05/02/21 #15 ea ondansetron 4 mg disintegrating 4 mg PO Q8H PRN nausea and 08/18/21 tablet vomiting #20 tabs acetaminophen 500 mg tablet 500 mg PO Q6H PRN fever or pain 11/29/23 (Tylenol Extra Strength) #14 tabs bacitracin 500 unit/gram topical 1 appl topical BID #30 grams 11/29/23 ointment ibuprofen 800 mg tablet 800 mg PO Q8H PRN pain #14 tabs 11/29/23 ibuprofen 600 mg tablet 600 mg PO Q6H PRN pain #20 tabs 04/18/24 ondansetron 4 mg disintegrating 4 mg PO Q8H PRN nausea and 04/18/24 tablet vomiting #20 tabs Allergies Allergy/AdvReac Type Severity Reaction Status Date / Time No Known Allergies Allergy Verified 04/18/24 16:34 Review of Systems Constitutional: Constitutional: Reports body ache(s), Reports chills, Reports fever(s), Denies increased appetite, Reports lethargy, Reports malaise and Reports weakness Eyes: Eyes: Denies blurry vision Cardiovascular: Cardiovascular: Denies chest pain and Denies dyspnea Respiratory: Respiratory: Reports cough and Denies dyspnea Gastrointestinal: Gastrointestinal: Reports diarrhea, Reports loose stools, Reports nausea and Reports vomiting Musculoskeletal: Musculoskeletal: Reports back pain and Reports myalgias Integumentary/Breasts: Skin/Breast: Denies rash Neurologic: Reports weakness PMFSH Past Medical History Medical History Asthma Social History Social History Alcohol intake: former Patient Tobacco Use Status: Never used Tobacco Second Hand Smoke Exposure: No Substance Use Type: Marijuana Advance Directives: No Advance Directives Information Provided: No Current occupational status: employed 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, [employer]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 Physical Exam ED Vital Signs: Vital Signs - 24 hr 04/18/24 16:32 Temperature 99 F Pulse Rate 106 H Respiratory Rate 20 Blood Pressure 149/99 H Pulse Oximetry 98 Oxygen Delivery Method Room Air BMI result Body Mass Index 30.1 Const General: healthy appearing, comfortable, no acute distress, alert and awake Nutritional Appearance: well nourished Orientation/consciousness: patient oriented x3 HENMT Head: Yes normocephalic and Yes atraumatic Eyes Eyelids: Yes eyelids normal Conjunctivae: conjunctivae normal Sclerae: sclerae normal Corneas: corneas normal Pupils: Equal, round and reactive pupils present EOM: EOMs intact bilaterally Neck Neck: Yes full ROM Resp Effort & Inspection: normal respiratory effort, able to speak in complete sentences and not labored Skin General skin exam: elasticity normal Neuro General: patient oriented x3 Cranial nerves: Yes Equal, round and reactive pupils present and Yes Bilaterally intact EOM present Cognition (Neuro): normal cognition Extrem Other: Moving all extremities well without any obvious deformities Course Course Course Narrative: RME, this is a rapid medical exam performed by Rian Jaime please refer to primary provider for complete H&P- 34-year-old male presents for evaluation of fevers, body aches, vomiting. Plan for labs, viral swabs. Medical Decision Making Medical Decision Making [facility] Narrative: 34-year-old male presents for evaluation of flu-like symptoms. He also complains of vomiting but no sharp abdominal pain. The patient tested positive for influenza a, he is outside the window for Tamiflu treatment of the symptoms started 3 days ago. Differential Diagnosis Differential Diagnoses: The differential diagnosis associated with the presentation includes Influenza COVID-19 Pneumonia Bronchitis Lab Data [facility] Lab Attestation statement: I reviewed the patient's lab results. No leukocytosis or anemia. Normal platelet count. No electrolyte abnormalities 04/18/24 17:29 04/18/24 17:29 Labs: Lab Results 04/18/24 Range/Units 17:29 WBC 7.1 (4.8-10.8) X10*3/uL RBC 5.09 (4.60-5.80) X10*6/uL Hgb 15.8 (14.0-18.0) g/dl Hct 44.1 (42.0-52.0) % MCV 86.6 (80.0-98.0) fL MCH 31.0 (27.0-33.0) pg MCHC 35.8 (31.0-36.0) g/dl RDW 11.4 (11.0-16.0) % Plt Count 224 (160-400) X10*3/uL MPV 10.1 (9.4-12.4) fL Immature Gran % (Auto) 0.3 (0.0-0.4) % Neut % (Auto) 84.2 H (45-73) % Lymph % (Auto) 7.2 L (20-40) % [place] % (Auto) 7.6 (2-11) % Eos % (Auto) 0.4 (0-4) % Baso % (Auto) 0.3 (0-2) % Lymph # (Auto) 0.5 L (1.2-4.9) X10*3/uL [place] # (Auto) 0.5 (0.1-1.2) X10*3/uL Eos # (Auto) 0.0 (0.0-0.4) X10*3/uL Baso # (Auto) 0.0 (0.0-0.2) X10*3/uL Abs Immat Gran (auto) 0.02 (0.00-0.03) X10*3/uL Absolute Neuts (auto) 6.0 (2.0-8.3) x10*3/uL Absolute Nucleated RBC 0.000 (0.0-0.012) X10*3/uL Nucleated RBC % (auto) 0.0 (0.0-0.2) /100WBC Sodium 140 (135-145) mmol/L Potassium 3.4 (3.3-5.1) mmol/L Chloride 107 (96-108) mmol/L Carbon Dioxide 23 (22-29) mmol/L Anion Gap 13 (12-20) BUN 11 (9-16) mg/dL Creatinine 0.86 (0.5-1.4) mg/dL Estim Creat Clear Calc 147.1 Estimated GFR > 60 Random Glucose 99 (60-115) mg/dL Calcium 9.2 D (8.4-10.2) mg/dL Total Bilirubin 0.5 (0.0-1.0) mg/dL AST 26 (5-37) U/L ALT 41 H (0-40) U/L Alkaline Phosphatase 56 (39-117) U/L Total Protein 7.6 (6.5-8.0) g/dL Albumin 4.4 (3.5-5.0) g/dL Lipase 20 (8-78) U/L Influenza Type A (PCR) POSITIVE A (Negative) Influenza Type B (PCR) NEGATIVE (Negative) RSV RNA Qual (PCR) NEGATIVE (Negative) SARS-CoV-2 RNA (RT-PCR) NEGATIVE (Negative) S. pyogenes GrpA YARED Negative (Negative) Discharge Plan Discharge Clinical Impression: Influenza A Patient Disposition: Home, Self-Care Instructions: Influenza (ED) Additional Instructions: YOU TESTED POSITIVE FOR INFLUENZA A. USE IBUPROFEN/TYLENOL FOR FEVERS AND BODY ACHES. TAKE ZOFRAN NEEDED FOR NAUSEA AND VOMITING HYDRATE WELL FOLLOW-UP WITH YOUR PRIMARY DOCTOR, RETURN FOR NEW OR WORSENING SYMPTOMS Prescriptions: New ibuprofen 600 mg tablet 600 mg PO Q6H PRN (Reason: pain) Qty: 20 0RF ondansetron 4 mg tablet,disintegrating 4 mg PO Q8H PRN (Reason: nausea and vomiting) Qty: 20 0RF No Action ondansetron 4 mg tablet,disintegrating 4 mg PO Q8H PRN (Reason: nausea and vomiting) Qty: 20 0RF lidocaine 5 % adhesive patch,medicated 1 patch topical DAILY Qty: 15 0RF Rx Instructions: leave on most painful area for up to 12 hrs cyclobenzaprine 5 mg tablet 5 mg PO TID PRN (Reason: muscle spasm) Qty: 14 0RF ibuprofen 800 mg tablet 800 mg PO Q8H PRN (Reason: pain) Qty: 14 0RF acetaminophen [Tylenol Extra Strength] 500 mg tablet 500 mg PO Q6H PRN (Reason: fever or pain) Qty: 14 0RF bacitracin 500 unit/gram ointment 1 appl topical BID Qty: 30 0RF Stand Alone Forms: Work/School Release Print Language: Nepali
[2024-04-18 17:35] LABS: MANUAL DIFF FLAG NO
[2024-04-18 17:37] LABS: Basophils Percent Auto 0.3 % (0-2); Eosinophils Percent Auto 0.4 % (0-4); Hematocrit 44.1 % (42.0-52.0); Hemoglobin 15.8 g/dl (14.0-18.0); Imm Gran Abs Auto 0.02 X10*3/uL (0.00-0.03); Imm Gran Pct Auto 0.3 % (0.0-0.4); Lymphocytes Absolute Auto 0.5 X10*3/uL (1.2-4.9); Lymphocytes Percent Auto 7.2 % (20-40); Mean Corpuscular HGB Conc 35.8 g/dl (31.0-36.0); Mean Corpuscular Volume 86.6 fL (80.0-98.0); Mean Platelet Volume 10.1 fL (9.4-12.4); Monocytes Absolute Auto 0.5 X10*3/uL (0.1-1.2); Monocytes Percent Auto 7.6 % (2-11); Neutrophils Percent Auto 84.2 % (45-73); Platelet Count 224 X10*3/uL (160-400); Red Blood Count 5.09 X10*6/uL (4.60-5.80); Red Cell Distribution Width 11.4 % (11.0-16.0); White Blood Count 7.1 X10*3/uL (4.8-10.8)
[2024-04-18 17:44] LABS: IDNOW Serial# 08D9AD1C; Strep A Nucleic Acid Negative (Negative)
[2024-04-18 17:51] LABS: Alanine Aminotransferase 41 U/L (0-40); Albumin Level 4.4 g/dL (3.5-5.0); Alkaline Phosphatase 56 U/L (39-117); Anion Gap 13 (12-20); Aspartate Amino Transferase 26 U/L (5-37); Bilirubin Total 0.5 mg/dL (0.0-1.0); Blood Urea Nitrogen 11 mg/dL (9-16); Calcium 9.2 mg/dL (8.4-10.2); Carbon Dioxide 23 mmol/L (22-29); Chloride 107 mmol/L (96-108); Creatinine Clr Calc Pharmacy 147.1; Estimated Glomerular Filt Rate > 60; Glucose Random 99 mg/dL (60-115); Lipase 20 U/L (8-78); Potassium 3.4 mmol/L (3.3-5.1); Sodium 140 mmol/L (135-145); Total Protein 7.6 g/dL (6.5-8.0)
[2024-04-18 18:21] LABS: Influenza A PCR POSITIVE (Negative); Influenza B PCR NEGATIVE (Negative); Resp Syncy Virus RNA Qual PCR NEGATIVE (Negative); SARS COV2 PCR INHOUSE NEGATIVE (Negative)
[2024-04-18 22:05] VITALS: BP 0/0; PULSE 0; RESP 0; TEMP -17.7; TEMP 0; O2SAT 0
== END 2024-04-18 22:06 | disposition home or self-care (01) ==
PROVIDERS: Physician Assistant; Emergency Provider Emergency Medicine
DX: J10.1 Influenza due to other identified influenza virus with other respiratory manifestations (principal); R11.2 Nausea with vomiting, unspecified; R05.9 Cough, unspecified; R10.9 Unspecified abdominal pain; M79.10 Myalgia, unspecified site; F12.90 Cannabis use, unspecified, uncomplicated; Z03.818 Encounter for observation for suspected exposure to other biological agents ruled out
CPT/HCPCS: 0241U; 80053; 83690; 85025; 87651; 99282; 99283

== ENCOUNTER 2024-10-15 12:14 | Emergency (ER) | payer OTHER, SELFPAY ==
[2024-10-15 12:26] VITALS: BP 134/95; PULSE 82; RESP 16; TEMP 36.5; O2SAT 94; BMI 31.3
--- NOTE | 2024-10-15 12:26 | ED_ITS ---
HPI - Wound/Laceration General Chief Complaint: Wound/Laceration Stated Complaint: laceration on lip Time Seen by Provider: 10/15/24 12:40 Source: patient Mode of arrival: ambulatory Limitations: no limitations History of Present Illness ED Provider: Loida Weldon PA-C HPI narrative: Patient is a 34 year old assigned male at with a history of asthma presenting to the emergency department today with an upper lip laceration. Patient states that he got headbutted by a horse while attempting to train it. Patient denies any loss of consciousness, dizziness, lightheadedness, abdominal pain, nausea, vomiting, fever, chills, blurry vision, double vision, loss of vision, chest pain, difficulty breathing, shortness of breath, back pain, night sweats, pain with urination, increased urinary frequency, increased urinary urgency, blood in his urine or stool, syncope or a near syncopal episode, bowel incontinence, bladder incontinence, or any other complaints at this time. Related Data Previous Rx's ?Medication ?Instructions ?Recorded cyclobenzaprine 5 mg tablet 5 mg PO TID PRN muscle spa sm #14 05/02/21 tabs lidocaine 5 % topical patch 1 patch topical DAILY Back pain 05/02/21 #15 ea ondansetron 4 mg disintegrating 4 mg PO Q8H PRN nausea and 08/18/21 tablet vomiting #20 tabs acetaminophen 500 mg tablet 500 mg PO Q6H PRN fever or pain 11/29/23 (Tylenol Extra Strength) #14 tabs bacitracin 500 unit/gram topical 1 appl topical BID #3 0 grams 11/29/23 ointment ibuprofen 800 mg tablet 800 mg PO Q8H PRN pain #14 t abs 11/29/23 ibuprofen 600 mg tablet 600 mg PO Q6H PRN pain #20 t abs 04/18/24 ondansetron 4 mg disintegrating 4 mg PO Q8H PRN nausea and 04/18/24 tablet vomiting #20 tabs Allergies Allergy/AdvReac Type Severity Reaction Status Date / Time No Known Allergies Allergy Verified 10/15/24 12:26 Review of Systems 2 Constitutional: Constitutional: Reports no additional constitutional complaints, Denies chills, Denies fever(s) and Denies night sweats Eyes: Eyes: Reports no additional eye complaints, Denies blurry vision, Denies change in vision, Denies diplopia, Denies eye discharge, Denies loss of vision and Denies eye pain ENT: Denies dizziness Comments: upper lip laceration Cardiovascular: Cardiovascular: Reports no additional cardiovascular complaints, Denies chest pain, Denies lightheadedness, Denies Loss of Consciousness and Denies dyspnea Respiratory: Respiratory: Reports no additional respiratory complaints and Denies dyspnea Gastrointestinal: Gastrointestinal: Reports no additional gastrointestinal complaints, Denies abdominal pain, Denies melena, Denies hematochezia, Denies change in bowel habits and Denies change in stool character Genitourinary: Genitourinary: Reports no additional male genitourinary complaints, Denies hematuria, Denies oliguria, Denies difficulty urinating, Denies dysuria, Denies urinary frequency, Denies urinary hesitancy, Denies urinary incontinence and Denies urinary urgency Musculoskeletal: Musculoskeletal: Reports no additional musculoskeletal complaints, Denies numbness and Denies tingling Neurologic: Denies dizziness, Denies loss of vision, Denies numbness and Denies tingling Psychiatric: Psychiatric: Reports no additional psychiatric complaints Endocrine: Endocrine: Reports no additional endocrine complaints Hematologic/Lymphatic: Hematologic/Lymphatic: Reports no additional hematologic/lymphatic complaints Allergic/Immunologic: Allergic/Immunologic: Reports no additional allergic/immunologic complaints [facility] Past Medical History Attestation statement: The following information was validated with the patient. 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 Physical Exam 2 Vital Signs: Vital Signs: Last Vital Signs Temp 97.7 F 10/15/24 14:22 Pulse 82 10/15/24 14:22 Resp 16 10/15/24 14:22 BP 134/95 H 10/15/24 14:22 Pulse Ox 94 10/15/24 14:22 O2 Del Method Room Air 10/15/24 14:22 BMI result Body Mass Index 31.3 Const: General: cooperative, no acute distress, alert and awake Nutritional Appearance: well nourished Orientation/consciousness: patient oriented x3 HEENT: Head: Yes normal to inspection and Yes atraumatic Ears: hearing grossly normal bilaterally and external ears normal General nose exam: Normal external nose present, no nasal discharge noted and no epistaxis Face images: 1. 2 cm flap like laceration - no active bleeding, does not involve deborah border Mouth: Normal oral and palatal mucosa present, no drooling and no muffled voice Eyes: General: appearance normal, both eyes and all related structures P eriorbital: periorbital findings normal Eyelids: Yes eyelids normal C onjunctivae: conjunctivae normal Pupils: Equal, round and reactive pupils present EOM: EOMs intact bilaterally Neck: Neck: Yes normal visual inspection, Yes full ROM and Yes no lymphadenopathy Resp: Effort & Inspection: normal respiratory effort and able to speak in complete sentences Neuro: General: patient oriented x3, moves all extremities and CN's II-XI intact bilaterally Cranial nerves: Yes Equal, round and reactive pupils present Cognition (Neuro): normal cognition Extrem: General: Yes normal to inspection, Yes full ROM and Yes capillary refill normal Psych: Appearance: grossly normal Mental Status: mental status grossly normal Affect: normal affect Attitude: cooperative Thought process: N ormal thought process present Thought content: Normal thought content present Insight: Good insight present (Psych) Course Course Course Narrative: Yue Purdy APRN This is a rapid medical exam. Deferred additional HPI, ROS, PE to primary provider. 34 yo male with no known medical history here with laceration to upper lip after his horse head butted him. No LOC. Teeth feel normal. Will need lac repair. Tetanus unknown. VSS Medications Administered Discontinued Medications Generic Name Dose Route Start Last Admin Trade Name Freq PRN Reason Stop Dose Admin Diphtheria/Tetanus/Acell Pertussis 0.5 ml 10/15/24 14:10 10/15/24 14:14 Diphth,Pertus(Acell),Tet Adult 0.5 Ml Syringe IM 10/15/24 14:11 0.5 ml .ONCE ONE Administration Lidocaine/Epinephrine/Tetracaine 1 ml 10/15/24 12:53 10/15/24 12:58 Lidocaine/Racepinep/Tetracaine 3 Ml Gel.Pf.Lula TOPICAL 10/15/24 12:54 1 ml ONCE ONE Administration Medical Decision Making Medical Decision Making MDM Narrative: Patient is a 34 year old assigned male at with a history of asthma presenting to the emergency department today with an upper lip laceration. Patient's physical exam was as noted in the physical exam portion of this note. No loose teeth. Wound did not go through the lip. Vermilion border spared. I explained my physical exam findings to the patient. I answered all questions asked by the patient. Patient's laceration was repaired with 4 sutures, per procedure note, without incident. Patient brought up to date on his tetanus status. I stressed the importance of the patient taking his medication as directed (either prescribed or as the over the counter packaging recommends). I stressed the importance of the patient following up with his primary care provider. I stressed the importance of the patient returning to the emergency department immediately if his symptoms were to worsen or if he were to develop any dizziness, shortness of breath, difficulty breathing, chest pain, blurry vision, loss of vision, nausea, vomiting, abdominal pain, fever, chills, back pain, or any other complaints. Patient verbalized agreement and understanding with this treatment plan and discharge. Differential Diagnosis Differential Diagnoses: The differential diagnosis associated with the presentation includes Facial laceration Admission/Observation Consideration of admission/observation: Escalation of care including admission/observation considered Patient would have been admitted to the hospital had his clinical presentation warranted hospital admission. Procedures Laceration Laceration 1: Site: face Side (If applicable): right Size (cm): 2 Description: irregular Depth: simple, single layer Local Anesthetic: other anesthetic (LET) Pre-repair: irrigated extensively and deep structures intact Skin layer closed with: other (prolene) Size (cm): 6-0 Number of sutures: 4 Technique: simple, interrupted Discharge Plan Discharge Clinical Impression: Laceration of lip Patient Disposition: Home, Self-Care Instructions: Laceration (DC) Additional Instructions: Have your (4) sutures removed in 7-10 days. Do NOT soak the affected area. Do NOT go into any public bodies of water such as pools, [place], lakes, ponds, streams, etc. After your sutures are removed and whatever scabbing falls away, apply sunscreen over the area ever day for 1 full year to mitigate scarring. Quite las (4) suturas en 7 a 10 d?as. NO moje la emily afectada. NO entre en cuerpos de agua p?blicos sary piscinas, r?os, [place], estanques, arroyos, etc. Despu?s de que le quiten las suturas y se desprendan las costras, aplique protector solar sobre la emily todos los d?as yakov un a?o completo para mitigar las cicatrices. Follow up with your primary care provider. Return to the emergency department immediately if your symptoms worsen or if you develop any dizziness, shortness of breath, difficulty breathing, chest pain, blurry vision, loss of vision, nausea, vomiting, abdominal pain, fever, chills, back pain, or any other complaints. Yolis?seguimiento?con carlos m?dico de atenci?n primaria. Acuda inmediatamente al servicio de urgencias si cristiano s?ntomas empeoran o si presenta falta de aliento, dificultad para respirar, dolor tor?cico, mareos, aturdimiento, dolor de espalda, dolor abdominal, fiebre, escalofr?os o cualquier otro s?ntoma. If you do not have a primary care provider - call any of the below numbers to establish and follow up with a primary care provider. Si no tiene un proveedor de atenci?n primaria, llame a cualquiera de los n?meros que aparecen a continuaci?n para establecer y hacer seguimiento con un proveedor de atenci?n primaria. [facility] Primary Care ([place]) [phone] [address] [facility] [place], [address] [facility] Primary Care ([address] [place]) [phone] [place] [address], [address] [place], [address] [facility] Primary Care ([address] [place]) [phone] [place] [address], [address] [place], [address] [facility] Primary Care ([place]) [phone] [place] [address], [address] [place], [address] [facility] Family Medicine [phone] [place] [address] [place], [address] Please see the information below about our Patient Portal. If you are not yet enrolled in the [facility] Patient Portal, you will receive an enrollment email invitation following your visit to any [facility] care setting. You may also self-enroll in the Patient Portal by visiting our website: [email or web address] The following information is required to access the Patient Portal: - Your [facility] Medical Record Number - Your personal home email address (must match what is in your electronic medical record, Registration staff can assist with this) - Name - Date of Capabilities of the Patient Portal: - Message some providers - View upcoming appointments - Access your health summary, medical history, and visit history - View current conditions and allergies - View procedure and lab results - View your medications, including guidelines, side effects, and precautions - Complete pre-appointment questionnaires requested by your provider - Ready summary reports of your office visits and procedures To access the Patient Portal Mobile Lula, follow these directions: - Search [employer] in the Lula Store or [employer] Store - Download the Lula - Search for [facility] - Enter your login/password Portal del paciente Si usted no esta inscrito en el portal de pacientes de [facility], recibira reno invitacion de inscripcion despues de carlos visita al [facility] o al [facility] via correo electronico. Tambien puede inscribirse voluntariamente en el portal de pacientes visitando nuestra pagina web: [email or web address] La siguiente informacion sera requerida para acceder al portal: - Carlos pablo de historia medica de [facility] - Carlos direccion de correo electronico personal - Nombre - Fecha de nacimiento Capacidades: Las siguientes capacidades estan disponibles en el portal de pacientes: - Enviar mensajes a algunos doctores - Verificar proximas citas - Acceso a carlos historial de caprice, registro medico e historial de visitas - Delmer las condiciones actuales y alergias delmer procedimientos y resultados del laboratorio - Delmer cristiano medicamentos, incluyendo las pautas - Efectos secundarios y precauciones - Completar o llenar formularios / cuestionarios de - Citas solicitadas por carlos doctor - Leer los resumenes de reportes medicos de cristiano visitas y procedimientos Sary acceder a la aplicacion movil: - [employer] en la Lula Store o [employer] Store - Descargue la aplicacion - [facility] - Ingrese carlos nombre de usuario / Contrasena Prescriptions: No Action ondansetron 4 mg tablet,disintegrating 4 mg PO Q8H PRN (Reason: nausea and vomiting) Qty: 20 0RF lidocaine 5 % adhesive patch,medicated 1 patch topical DAILY Qty: 15 0RF Rx Instructions: leave on most painful area for up to 12 hrs cyclobenzaprine 5 mg tablet 5 mg PO TID PRN (Reason: muscle spasm) Qty: 14 0RF ibuprofen 600 mg tablet 600 mg PO Q6H PRN (Reason: pain) Qty: 20 0RF ondansetron 4 mg tablet,disintegrating 4 mg PO Q8H PRN (Reason: nausea and vomiting) Qty: 20 0RF ibuprofen 800 mg tablet 800 mg PO Q8H PRN (Reason: pain) Qty: 14 0RF acetaminophen [Tylenol Extra Strength] 500 mg tablet 500 mg PO Q6H PRN (Reason: fever or pain) Qty: 14 0RF bacitracin 500 unit/gram ointment 1 appl topical BID Qty: 30 0RF Interventions: ED Discharge Assessment Last Done: 10/15/24 14:22 Discharge Date/Time: 10/15/24 14:23 Print Language: Maori
[2024-10-15] MEDS: Lidocaine/Racepinep/Tetracaine 3 ML GEL.PF.APP 1 ML TOPICAL (12:58)
[2024-10-15] MEDS: Diphth,Pertus(ACell),Tet Adult 0.5 ML SYRINGE IM (14:14)
[2024-10-15 14:22] VITALS: BP 134/95; PULSE 82; RESP 16; TEMP 36.5; O2SAT 94
== END 2024-10-15 14:23 | disposition home or self-care (01) ==
PROVIDERS: Emergency Provider Emergency Medicine
DX: S01.511A Laceration without foreign body of lip, initial encounter (principal); R51.9 Headache, unspecified; X58.XXXA Exposure to other specified factors, initial encounter; Y93.9 Activity, unspecified; Y92.9 Unspecified place or not applicable; Y99.8 Other external cause status; Z23 Encounter for immunization
CPT/HCPCS: 12011; 90471; 90715; 99284